=== PATIENT | male | born 1955 | race Caucasian/White ===

== ENCOUNTER 2016-12-31 05:47 | Emergency (ER) | payer OTHER ==
[2016-12-31] MEDS ORDERED: DEXAMETHASONE 10 MG/ML VIAL PO STA (06:44)
[2016-12-31] MEDS ORDERED: AZITHROMYCIN 250 MG TABLET PO STA (06:44)
[2016-12-31] MEDS ORDERED: IBUPROFEN 600 MG TABLET PO STA (06:44)
[2016-12-31] MEDS ORDERED: AZITHROMYCIN 250 MG TABLET PO ONE (06:49)
[2016-12-31] MEDS ORDERED: DEXAMETHASONE 10 MG/ML VIAL ONE (06:50)
[2016-12-31] MEDS ORDERED: IBUPROFEN 600 MG TABLET PO ONE (06:50)
== END 2016-12-31 07:13 | disposition home or self-care (01) ==
DX: H66.91 Otitis media, unspecified, right ear (principal); J44.9 Chronic obstructive pulmonary disease, unspecified; F17.200 Nicotine dependence, unspecified, uncomplicated
CPT/HCPCS: 99283; A9270

== ENCOUNTER 2017-08-09 09:26 | Day surgery (SDC) | payer OTHER ==
[2017-08-09] MEDS ORDERED: ceFAZolin 2 GM/50 ML 0 GM/0 ML BAG IV ONE (09:35)
[2017-08-09] MEDS ORDERED: CLINDAMYCIN IV 900 MG/50 ML IV ONE (10:00)
[2017-08-09] MEDS ORDERED: LACTATED RINGERS 1,000 ML IV ONE (10:05)
[2017-08-09] MEDS ORDERED: BUPIVACAINE 0.5% PF 30 ML VIAL INFIL ONE (11:53)
[2017-08-09] MEDS ORDERED: MIDAZOLAM 2 MG/2 ML VIAL IVP ONE (12:00)
[2017-08-09] MEDS ORDERED: fentaNYL 100 MCG/2 ML VIAL IVP ONE (12:00)
[2017-08-09] MEDS ORDERED: LIDOCAINE-MPF 2% 5 ML VIAL IM ONE (12:00)
--- NOTE | 2017-08-09 12:42 | OPERATIVE REPORT ---
Operative Report - General Procedure Date: 08/09/17 Planned Procedure: Wide excision of previous basal cell carcinoma of the LEFT neck Pre-Op Diagnosis: Basal cell carcinoma of the LEFT neck Procedure Performed: Wide excision of previous basal cell carcinoma of the LEFT neck Post Op Diagnosis: Basal cell carcinoma of the LEFT neck - Procedure Note Primary Surgeon: Yossi Puente MD Anesthesia Provider: Herlinda Michele Anesthesia Technique: Local (30 mL 1/2% Marcaine), MAC IV Fluids (mL): 700 Estimated Blood Loss (mL): 5 Complications: None. - Other Other Information/Narrative: OPERATIVE DESCRIPTION/REPORT: After verbal and written informed consent was obtained detailing the risks of infection, bleeding requiring transfusion with its risks, nerve injury, and , and after I met with the patient confirming the surgery and the site of the surgery and after initialing the site of the surgery with a surgical marker , the patient was brought to the operative suite and placed supine on the operating table. Great care was taken to avoid pressure points to prevent pressure necrosis or nerve injury. Monitoring devices were applied along with TEDs and pneumatic compressive stockings (to prevent DVT). The patient received preoperative antibiotics for surgical prophylaxis. [anesthesiologist] sedated and anesthetized the patient for the entire procedure. The patient was prepped and draped in the usual sterile manner. With the patient draped my initials were clearly visible. A "time in" then confirmed that the patient was identified with 3 identifiers (name, date and medical record number), the history and physical was in the chart, the signed consent confirming the procedure was in the chart, the patient was in the correct position, the aforementioned prophylactic measures were in place or given, we had the correct personnel and equipment to complete the procedure and that anesthesia, surgery and nursing were given an opportunity to express any concerns. With the agreement of everyone in the room, we proceeded with the operation. After adequate local anesthesia was administered using 1/2% marcaine, a curvilinear incision was made encompassing the previous excision site. Dissection of the skin circumferentially was completed primarily using Bovie electrocautery. The lesion was then dissected off the neck using Bovie electrocautery. Every attempt was made to get to normal tissue around the lesion. The specimen was sent to pathology with a short stitch superiorly (neck ) and a long stitch posteriorly (back). Meticulous hemostasis was obtained using Bovie electrocautery. The subcutaneous tissues were approximated using interrupted 2-0 Vicryl. The skin incision was approximated with 4-0 Nylon using mattress sutures. The skin was re-injected with 1/2% marcaine for postoperative pain control. Bacitracin and a dressing was then applied. At this point a time out was performed that confirmed that all the counts were correct, the procedure that was performed, the blood loss, the IV fluids administered, and the patients condition. Having tolerated the procedure well , the patient was subsequently taken to recovery room in good and stable condition.
[2017-08-09 13:16] VITALS: BP 137/79
== END 2017-08-09 09:27 | disposition home or self-care (01) ==
LOC: SDS 09:26
PROVIDERS: ATTEND Surgery
PROC: 0HB4XZZ Excision of Neck Skin, External Approach (ICD-10-PCS; principal; 2017-08-09 10:30)
DX: C44.41 Basal cell carcinoma of skin of scalp and neck (principal); M06.9 Rheumatoid arthritis, unspecified; J45.909 Unspecified asthma, uncomplicated; F17.210 Nicotine dependence, cigarettes, uncomplicated
CPT/HCPCS: 11626; J7120

== ENCOUNTER 2018-11-20 08:00 | Outpatient (CLI) | payer MEDICARE, OTHER ==
[2018-11-20 13:13] LABS: BASOPHILS # (AUTO) 0.1 10^3/uL (0.0-0.1); BASOPHILS % (AUTO) 1.1 %; EOSINOPHILS # (AUTO) 0.2 10^3/uL (0.0-0.7); EOSINOPHILS % (AUTO) 1.9 %; HGB - HEMOGLOBIN 15.8 g/dL (14.0-18.0); LYMPHOCYTES # (AUTO) 3.4 10^3/uL (1.5-3.5); LYMPHOCYTES % (AUTO) 27.6 %; MEAN CORPUSCULAR HEMOGLOBIN 29.4 pg (27.0-31.0); MEAN CORPUSCULAR HGB CONC 33.9 g/dL (32.0-36.0); MEAN CORPUSCULAR VOLUME 86.7 fL (80.0-94.0); MEAN PLATELET VOLUME 9.5 fL (7.4-11.4); MONOCYTES # (AUTO) 0.9 10^3/uL (0.0-1.0); MONOCYTES % (AUTO) 7.2 %; NEUTROPHILS # (AUTO) 7.6 10^3/uL (1.5-6.6); NEUTROPHILS % (AUTO) 62.2 %; PLT - PLATELET COUNT 225 10^3/uL (130-450); RED BLOOD COUNT 5.36 10^6/uL (4.70-6.10); RED CELL DISTRIBUTION WIDTH 13.6 % (12.0-15.0); WHITE BLOOD COUNT 12.3 x10^3/uL (4.8-10.8)
[2018-11-20 13:27] LABS: ALBUMIN 3.9 g/dL (3.2-5.5); ALKALINE PHOSPHATASE 84 IU/L (42-121); ALT ALANINE AMINOTRANSFERASE 41 IU/L (10-60); AST ASPARTATE AMINOTRANSFERASE 26 IU/L (10-42); BILIRUBIN,TOTAL 0.9 mg/dL (0.2-1.0); BUN - BLOOD UREA NITROGEN 13 mg/dL (6-20); CALCIUM 8.7 mg/dL (8.5-10.3); CARBON DIOXIDE - CO2 28 mmol/L (21-32); CHLORIDE 94 mmol/L (101-111); CHOL/HDL RATIO 4.9 (<5.0); CHOLESTEROL 172 mg/dL; CREATININE 0.8 mg/dL (0.6-1.2); GFR - MDRD 97 (>89); GLUCOSE 144 mg/dL (70-100); HDL CHOLESTEROL 35 mg/dL; LDL CHOLESTEROL,CALCULATED 110 mg/dL; LDL/HDL RATIO 3.1 (<3.6); SODIUM 132 mmol/L (135-145); TOTAL PROTEIN 7.7 g/dL (6.7-8.2); VLDL CHOLESTEROL 27 mg/dL
[2018-11-21 11:38] LABS: HB2 TOTAL 17.3 g/dL; HEMOGLOBIN A1C 1.17 g/dL; HEMOGLOBIN A1C % 8.3 % (4.6-6.2)
[2018-11-21 12:11] LABS: HEPATITIS C ANTIBODY NON-REACTIVE (NON-REACTIVE)
== END 2018-11-20 23:59 ==
LOC: LAB.R 08:00
PROVIDERS: ATTEND Internal Medicine
DX: J44.9 Chronic obstructive pulmonary disease, unspecified (principal); I45.10 Unspecified right bundle-branch block; M17.9 Osteoarthritis of knee, unspecified; Z13.6 Encounter for screening for cardiovascular disorders; Z12.5 Encounter for screening for malignant neoplasm of prostate
CPT/HCPCS: 80053; 80061; 85025; 86803; G0103; 83036; 83721; 84153

== ENCOUNTER 2019-01-03 23:45 | Emergency (ER) | payer MEDICARE, OTHER ==
[2019-01-03] MEDS ORDERED: TETANUS/DIPHTHERIA/PERTUSSIS 0.5 ML SYRINGE IM ONE (23:58)
--- NOTE | 2019-01-04 00:06 | ED Physician Documentation ---
History of Present Illness - Stated complaint Stated Complaint: R INDEX FINGER LAC - Chief complaint Chief Complaint: Laceration - History obtained from History obtained from: Patient - History of Present Illness Timing: Today Pain level max: 0 Pain level now: 0 - Additonal information Additional information: R index finger laceration on can today. states he is right handed. unknown last tetanus. Nothing makes it better or worse Review of Systems Neurologic: denies: Focal weakness, Numbness PD PAST MEDICAL HISTORY - Past Medical History Cardiovascular: None Respiratory: Asthma, Sleep apnea, Other Endocrine/Autoimmune: Type 2 diabetes GI: Chronic constipation, Hemorrhoids : Nocturia, Frequency HEENT: None, Other Psych: None Musculoskeletal: Osteoarthritis, Rheumatoid arthritis Derm: None - Past Surgical History Past Surgical History: Yes Ortho: Arthroscopic surgery, Other - Present Medications Home Medications: Ambulatory Orders Medication Instructions Recorded Confirmed Metoprolol Succinate [Toprol Xl] 25 mg PO BID 08/05/17 12/01/18 cloNIDine [Catapres] 0.1 mg PO BID 08/05/17 12/01/18 Nicotine 21 mg Patch [Nicoderm] 1 each TOP Q24H 08/09/17 12/01/18 Albuterol Sulfate [Proair Hfa 1 - 2 puffs INH Q4H PRN 12/01/18 12/01/18 Inhaler] Aspirin 81 mg PO DAILY 12/01/18 12/01/18 Docusate Sodium 250Mg Capsule 250 mg PO TID 12/01/18 12/01/18 [Colace 250Mg Capsule] - Allergies Allergies/Adverse Reactions: Allergies Allergy/AdvReac Type Severity Reaction Status Date / Time Penicillins Allergy Unknown Unknown Verified 01/03/19 23:52 - Social History Does the pt smoke?: Yes Smoking Status: Current every day smoker Does the pt drink ETOH?: Yes Does the pt have substance abuse?: No PD ED PE NORMAL - Vitals Vital signs reviewed: Yes - General General: Alert and oriented X 3, No acute distress - Derm Derm: Warm and dry - Extremities Extremities: Other (r index finger - 1cm, linear over PIP joint, dorsum. NVI. no tendon injury) - Neuro Neuro: Alert and oriented X 3 Results - Vitals Vitals: Vital Signs - 24 hr 01/03/19 01/04/19 23:50 01:02 Temperature 37.1 C 36.2 C L Heart Rate 92 84 Respiratory 16 18 Rate Blood Pressure 177/72 H 148/78 H O2 Saturation 96 94 Oxygen O2 Source Room air Procedures - Laceration (location) R 2nd digit Length in cm: 1 Wound type: Linear, Into subcut fat, Clean Neurovascular status: Sensory intact, Motor intact, Vascular intact Tendon involvement: Tendon intact. No: Tendon Injury Anesthesia: Lidocaine 1% Wound Preparation: Irrigated copiously NS, Wound explored, To the base. No: FB identified Skin layer closure: Nylon, Interrupted, Size #-0 - enter number (4) Other: Patient tolerated well, No complications, Neurovascular intact, Dressing applied, Tetanus booster given (tdap) Complexity: Simple PD MEDICAL DECISION MAKING - ED course Complexity details: considered differential, d/w patient ED course: Warnings of infection and instructions on wound care given at bedside. Also counseled on how to minimize scarring. Patient counseled regarding signs and symptoms for which I believe and urgent re-evaluation would be necessary. Patient with good understanding of and agreement to plan and is comfortable going home at this time This document was made in part using voice recognition software. While efforts are made to proofread this document, sound alike and grammatical errors may occur. Departure - Departure Disposition: 01 Home, Self Care Clinical Impression: Laceration of right index finger Qualifiers: Encounter type: initial encounter Damage to nail status: without damage Foreign body presence: without foreign body Qualified Code(s): S61.210A - Laceration without foreign body of right index finger without damage to nail, initial encounter Condition: Good Instructions: ED Laceration Hand Follow-Up: Simone Rider MD [Primary Care Provider] - Comments: Follow-up with your doctor in approximately 10 days for suture removal. Return if you worsen. Return especially for redness, swelling or drainage from the wound. You can apply antibiotic ointment twice daily to the wound. Discharge Date/Time: 01/04/19 01:10
[2019-01-04] MEDS ORDERED: LIDOCAINE 1% 2 ML VIAL SUBQ STA (00:38)
[2019-01-04 01:03] VITALS: BP 148/78
== END 2019-01-04 01:10 | disposition home or self-care (01) ==
LOC: ED 23:45
DX: S61.210A Laceration without foreign body of right index finger without damage to nail, initial encounter (principal); W26.8XXA Contact with other sharp object(s), not elsewhere classified, initial encounter; E11.9 Type 2 diabetes mellitus without complications; F17.200 Nicotine dependence, unspecified, uncomplicated; Z79.82 Long term (current) use of aspirin; Z23 Encounter for immunization
CPT/HCPCS: 12001; 90471; 99282; 99283

== ENCOUNTER 2019-01-22 06:18 | Day surgery (SDC) | payer MEDICARE, OTHER ==
[2019-01-22] MEDS ORDERED: LACTATED RINGERS 1,000 ML IV ONE (06:40)
[2019-01-22] MEDS ORDERED: fentaNYL 250 MCG/5 ML VIAL IVP ONE (07:25)
[2019-01-22] MEDS ORDERED: MIDAZOLAM 2 MG/2 ML VIAL IVP ONE (07:25)
[2019-01-22 08:18] VITALS: BP 122/80
== END 2019-01-22 06:19 | disposition home or self-care (01) ==
LOC: SDS 06:18
PROVIDERS: ATTEND Surgery
PROC: 0DBP8ZZ Excision of Rectum, Via Natural or Artificial Opening Endoscopic (ICD-10-PCS; principal; 2019-01-22 07:30)
DX: D12.8 Benign neoplasm of rectum (principal); K57.30 Diverticulosis of large intestine without perforation or abscess without bleeding; K64.8 Other hemorrhoids; I10 Essential (primary) hypertension; J45.909 Unspecified asthma, uncomplicated; E11.9 Type 2 diabetes mellitus without complications; G47.30 Sleep apnea, unspecified; F17.210 Nicotine dependence, cigarettes, uncomplicated; M06.9 Rheumatoid arthritis, unspecified; E66.9 Obesity, unspecified; Z68.41 Body mass index [BMI] 40.0-44.9, adult; Z79.82 Long term (current) use of aspirin; Z79.51 Long term (current) use of inhaled steroids
CPT/HCPCS: 45380; J3010; J7120

== ENCOUNTER 2019-06-07 09:49 | Outpatient (CLI) | payer MEDICARE, OTHER ==
[2019-06-07 10:03] LABS: BASOPHILS # (AUTO) 0.1 10^3/uL (0.0-0.1); BASOPHILS % (AUTO) 0.9 %; EOSINOPHILS # (AUTO) 0.3 10^3/uL (0.0-0.7); EOSINOPHILS % (AUTO) 2.5 %; HGB - HEMOGLOBIN 16.1 g/dL (14.0-18.0); LYMPHOCYTES # (AUTO) 3.4 10^3/uL (1.5-3.5); LYMPHOCYTES % (AUTO) 30.9 %; MEAN CORPUSCULAR HEMOGLOBIN 29.1 pg (27.0-31.0); MEAN CORPUSCULAR HGB CONC 32.7 g/dL (32.0-36.0); MEAN CORPUSCULAR VOLUME 88.8 fL (80.0-94.0); MONOCYTES % (AUTO) 8.8 %; NEUTROPHILS # (AUTO) 6.3 10^3/uL (1.5-6.6); NEUTROPHILS % (AUTO) 56.5 %; PLT - PLATELET COUNT 238 10^3/uL (130-450); RED BLOOD COUNT 5.54 10^6/uL (4.70-6.10); RED CELL DISTRIBUTION WIDTH 13.5 % (12.0-15.0); WHITE BLOOD COUNT 11.1 x10^3/uL (4.8-10.8)
[2019-06-07 10:10] LABS: CALCIUM 9.6 mg/dL (8.5-10.3); CREATININE 0.9 mg/dL (0.6-1.2)
[2019-06-07 10:20] LABS: HB2 TOTAL 16.8 g/dL; HEMOGLOBIN A1C 0.87 g/dL; HEMOGLOBIN A1C % 6.9 % (4.6-6.2)
[2019-06-07 10:42] LABS: THYROID STIMULATING HORMONE 1.48 uIU/mL (0.34-5.60)
[2019-06-07 10:44] LABS: FREE T4 (FREE THYROXINE) 0.71 ng/dL (0.58-1.64)
== END 2019-06-07 09:50 | disposition home or self-care (01) ==
LOC: LAB 09:49
PROVIDERS: ATTEND Family Medicine
DX: E11.8 Type 2 diabetes mellitus with unspecified complications (principal); M62.81 Muscle weakness (generalized)
CPT/HCPCS: 36415; 80048; 83036; 84439; 84443; 84481; 85025

== ENCOUNTER 2019-06-30 03:26 | Emergency (ER) | payer MEDICARE, OTHER ==
[2019-06-30 03:38] VITALS: BP 156/60
[2019-06-30] MEDS ORDERED: LIDOCAINE 2% 10 ML MDV SUBQ STA (03:52)
--- NOTE | 2019-06-30 04:14 | ED Physician Documentation ---
History of Present Illness - Stated complaint Stated Complaint: MALE PX - Chief complaint Chief Complaint: General - History obtained from History obtained from: Patient - History of Present Illness Timing: Last night Pain level max: 8 Pain level now: 8 - Additonal information Additional information: Patient was constipated and having a bowel movement when he strained, felt a pop and now has swelling to the perineum. Worse with sitting. Better with standing. Review of Systems Constitutional: denies: Fever, Chills GI: denies: Vomiting Skin: denies: Rash Musculoskeletal: denies: Neck pain, Back pain PD PAST MEDICAL HISTORY - Past Medical History Past Medical History: Yes Cardiovascular: None Respiratory: Asthma, Sleep apnea, Other Neuro: None Endocrine/Autoimmune: Type 2 diabetes GI: Chronic constipation, Hemorrhoids : Nocturia, Frequency HEENT: Other Psych: None Musculoskeletal: Osteoarthritis, Rheumatoid arthritis Derm: None - Past Surgical History Past Surgical History: Yes Ortho: Arthroscopic surgery, Other - Present Medications Home Medications: Ambulatory Orders Medication Instructions Recorded Confirmed Metoprolol Succinate [Toprol Xl] 25 mg PO BID 08/05/17 12/01/18 cloNIDine [Catapres] 0.1 mg PO BID 08/05/17 12/01/18 Nicotine 21 mg Patch [Nicoderm] 1 each TOP Q24H 08/09/17 12/01/18 Albuterol Sulfate [Proair Hfa 1 - 2 puffs INH Q4H PRN 12/01/18 12/01/18 Inhaler] Aspirin 81 mg PO DAILY 12/01/18 12/01/18 Docusate Sodium 250Mg Capsule 250 mg PO TID 12/01/18 12/01/18 [Colace 250Mg Capsule] - Allergies Allergies/Adverse Reactions: Allergies Allergy/AdvReac Type Severity Reaction Status Date / Time Penicillins Allergy Unknown Unknown Verified 06/30/19 03:38 - Social History Does the pt smoke?: Yes Smoking Status: Current every day smoker Does the pt drink ETOH?: Yes Does the pt have substance abuse?: No - Immunizations Immunizations are current?: No - POLST Patient has POLST: No PD ED PE NORMAL - Vitals Vital signs reviewed: Yes - General General: Alert and oriented X 3, No acute distress - HEENT HEENT: Moist mucous membranes - Derm Derm: Warm and dry - Neuro Neuro: Alert and oriented X 3 PD ED PE EXPANDED - Male Male visual: 1 - swelling, tenderness Results - Vitals Vitals: Vital Signs - 24 hr 06/30/19 06/30/19 03:36 04:29 Temperature 36.7 C Heart Rate 89 78 Respiratory 17 17 Rate Blood Pressure 156/60 H O2 Saturation 96 96 Oxygen O2 Source Room air PD MEDICAL DECISION MAKING - ED course Complexity details: considered differential, d/w patient ED course: 63-year-old male with what appears to be a perineal hematoma. Ultrasound was used to confirm. No blood flow present. The area was prepped with chlorhexidine. 2% lidocaine was infiltrated for anesthesia with good effect. An 18-gauge needle was then inserted and 20 cc of blood returned. The swelling decreased significantly and pain improved. Patient tolerated well Hematoma was drained. Tolerated well. Patient sat directly on the area with several layers of gauze to decrease the swelling. We will also use ice at home. Will return if he worsens. Not on blood thinners. Patient counseled regarding signs and symptoms for which I believe and urgent re-evaluation would be necessary. Patient with good understanding of and agreement to plan and is comfortable going home at this time This document was made in part using voice recognition software. While efforts are made to proofread this document, sound alike and grammatical errors may occur. Departure - Departure Disposition: 01 Home, Self Care Clinical Impression: Hematoma Condition: Good Instructions: ED Hematoma Follow-Up: Simone Rider MD [Primary Care Provider] - Within 3 Days Comments: your,doctor in 3 days for wound check. Return if you worsen. Discharge Date/Time: 06/30/19 04:30
== END 2019-06-30 04:30 | disposition home or self-care (01) ==
LOC: ED 03:26
DX: S30.0XXA Contusion of lower back and pelvis, initial encounter (principal); X58.XXXA Exposure to other specified factors, initial encounter; E11.9 Type 2 diabetes mellitus without complications; F17.200 Nicotine dependence, unspecified, uncomplicated; Z79.82 Long term (current) use of aspirin
CPT/HCPCS: 10160; 99281; 99282

== ENCOUNTER 2020-01-25 08:07 | Outpatient (CLI) | payer MEDICARE, OTHER ==
[2020-01-25 08:41] LABS: HB2 TOTAL 17.8 g/dL; HEMOGLOBIN A1C 2.12 g/dL
[2020-01-25 08:42] LABS: BASOPHILS % (AUTO) 0.6 %; EOSINOPHILS % (AUTO) 1.2 %; HGB - HEMOGLOBIN 17.1 g/dL (14.0-18.0); LYMPHOCYTES % (AUTO) 36.2 %; MEAN CORPUSCULAR HEMOGLOBIN 30.5 pg (27.0-31.0); MEAN CORPUSCULAR HGB CONC 35.3 g/dL (32.0-36.0); MEAN CORPUSCULAR VOLUME 86.6 fL (80.0-94.0); MEAN PLATELET VOLUME 11.4 fL (7.4-11.4); MONOCYTES % (AUTO) 7.4 %; NEUTROPHILS % (AUTO) 53.8 %; PLT - PLATELET COUNT 185 10^3/uL (130-450); RED CELL DISTRIBUTION WIDTH 12.3 % (12.0-15.0); WHITE BLOOD COUNT 9.1 x10^3/uL (4.8-10.8)
[2020-01-25 08:45] LABS: ALBUMIN 4.2 g/dL (3.2-5.5); ALBUMIN/GLOBULIN RATIO 1.2 (1.0-2.2); ALKALINE PHOSPHATASE 99 IU/L (42-121); ALT ALANINE AMINOTRANSFERASE 49 IU/L (10-60); AST ASPARTATE AMINOTRANSFERASE 30 IU/L (10-42); BUN - BLOOD UREA NITROGEN 17 mg/dL (6-20); CALCIUM 8.8 mg/dL (8.5-10.3); CARBON DIOXIDE - CO2 23 mmol/L (21-32); CHLORIDE 97 mmol/L (101-111); CHOL/HDL RATIO 6.1 (<5.0); CHOLESTEROL 200 mg/dL; CREATININE 0.9 mg/dL (0.6-1.2); GLUCOSE 415 mg/dL (70-100); HDL CHOLESTEROL 33 mg/dL; SODIUM 129 mmol/L (135-145); TOTAL PROTEIN 7.7 g/dL (6.7-8.2)
[2020-01-25 08:59] LABS: ABNORMAL LYMPHS % (MANUAL) 0 %; BAND NEUTROPHILS % (MANUAL) 0 %
[2020-01-25 09:02] LABS: LYMPHOCYTES # (MANUAL) 3.5 10^3/uL (1.5-3.5); LYMPHOCYTES % (MANUAL) 17 %; MONOCYTES # (MANUAL) 0.1 10^3/uL (0.0-1.0); MYELOCYTES % (MANUAL) 2 %
[2020-01-25 09:03] LABS: DIFFERENTIAL COMMENT MANUAL DIFFERENTIAL; PLATELET MORPHOLOGY RARE GIANT PLATELETS (NORMAL); RBC MORPHOLOGY (MULTIPLE) 1+ ANISOCYTOSIS (NORMAL)
[2020-01-25 09:17] LABS: LDL CHOLESTEROL,DIRECT 111 mg/dL; LDLD/HDL RATIO 3.4 (<3.6)
== END 2020-01-25 08:08 | disposition home or self-care (01) ==
LOC: LAB 08:07
PROVIDERS: ATTEND Family Medicine
DX: E11.65 Type 2 diabetes mellitus with hyperglycemia (principal); E66.3 Overweight; M05.9 Rheumatoid arthritis with rheumatoid factor, unspecified; J45.909 Unspecified asthma, uncomplicated; I10 Essential (primary) hypertension
CPT/HCPCS: 36415; 80053; 80061; 83036; 83721; 84443; 85025

== ENCOUNTER 2020-04-08 15:24 | Outpatient (CLI) | payer MEDICARE, OTHER ==
--- NOTE | 2020-04-08 15:42 | SLEEP CARE CONSULTATION ---
Information from patient questionnaire entered by Lianna Noe. I have reviewed and concur with the information entered by Lianna Noe. This document represents the service I personally performed and the decisions made by me, Radha Hansen MD, [facility]. History of Present Illness Service Date and Time: 04/08/2020 1524 Reason for Visit: New patient, -[facility] Chief Complaint: reports: Other (previously diagnosed sleep apnea) Duration of Symptoms: 8 year Usual bedtime: varies Time it takes to fall asleep: 15 minutes Snores at night: Yes Observed to quit breathing while asleep: Yes Sleeps alone due to snoring: No Number of times waking at night: varies Reasons for waking at night: reports: Bathroom, Other (change position) Toss, Turn, or Twitch while sleeping: Yes Recalls having dreams: Yes Usually gets out of bed at: varies Feels refreshed in the morning: Yes Morning headache: No Sleepy or fatigued during the day: Yes Ever fallen asleep while driving: No Takes day naps: Yes Dreams during day naps: Yes Prior sleep studies: Yes Year and Where: [facility] 2013 Additional HPI information: I had the pleasure of seeing Mr. Frederick today regarding obstructive sleep apnea-hypopnea. As you know, he is a 64 year old gentleman who was diagnosed with the sleep-disordered breathing here in 2013. The AHI was 60.2 and radha oxygen saturation of 73%. He was prescribed a BiPAP device set at 20/14 cmH2O. He uses every night and all night. The compliance data is not available because he forgot to bring the memory card. He wears nasal pillows. He finds the treatment very beneficial. Subjective Initial [place] Sleepiness Scale score: 9 Past Medical History Past Medical History: reports: Diabetes, Arthritis, Asthma, Other (COPD, High Blood Pressure) Social History The patient's occupation is Retired. Patient is and lives in [place]. Have you smoked in the past 12 months: Yes Cigarettes per day (20/pack): 20 Years of smokin Smoking Pack Years: 45.0 Caffeine use: Yes Caffeine amount and frequency: 1-2 cans/day Family History Family history of sleep disordered breathing: No Allergies and Home Medications Drug allergies reviewed: Yes Home medication list reviewed: Yes Review of Systems Weight gain over past 5 years: 50 Weight loss over past 5 years: 20 Cardiovascular: reports: high blood pressure Respiratory: reports: shortness of breath, wheeze Gastrointestinal: reports: difficulty swallowing Urinary: denies: incontinence, frequency, urgency, impotence, other Neurological: denies: headaches, seizure, head trauma, disorientation, speech dysfunction, gait or balance problems, fainting or unconsciousness, other Ear/Nose/Throat: reports: nasal congestion, wisdom teeth removed Endocrine: reports: too hot or cold, unexplained weakness Musculoskeletal: reports: joint pain, mobility problems Immunologic: denies: sneezing, rash, itching, allergies to food or environment, other Physical Exam Vital signs obtained and entered by: To minimize the COVID-19 exposure, detailed exam was not performed. Height: 5 ft 11 in Weight: 300 lb Weight change since last visit: 80 Body Mass Index: 41.8 BMI Classification: Morbidly Obese Impression and Plan IMPRESSION: 1. Obstructive Sleep Apnea-Hypopnea Syndrome, very severe, as previously diagnosed. According to the patient, h has had good treatment compliance. The patient experiences improvement on the treatment. Narrow oropharynx and obesity are common predisposing factors for obstructive sleep apnea-hypopnea syndrome. A new in-laboratory polysomnography will be ordered to confirm the diagnosis and reassess its severity which is most likely worse due to the 80-lb weight gain. Plan: 1. Schedule an in-laboratory polysomnography. 2. The patient will bring his memory card in for download. 3. Avoid alcohol, sedative and muscle relaxant around bedtime. 4. Attempt to lose weight. 5. Return for a follow up after the sleep study. Visit Type: In Office Time Spent with Patient (minutes): 15 Provider Statement: I spent 100% of the Face to Face Visit with the patient with greater than 50% spent counseling the patient and coordination of care.
== END 2020-04-08 15:25 | disposition home or self-care (01) ==
LOC: SC 15:24
PROVIDERS: ATTEND Internal Medicine Pulmonary Disease
DX: G47.33 Obstructive sleep apnea (adult) (pediatric) (principal); E66.01 Morbid (severe) obesity due to excess calories; Z68.41 Body mass index [BMI] 40.0-44.9, adult; F17.210 Nicotine dependence, cigarettes, uncomplicated
CPT/HCPCS: 99203; G0463; 99212

== ENCOUNTER 2020-04-24 19:21 | Outpatient (CLI) | payer MEDICARE, OTHER | END 2020-04-24 19:22 | disposition home or self-care (01) | LOC: SC 19:21 | PROVIDERS: ATTEND Internal Medicine Pulmonary Disease | DX: G47.33 Obstructive sleep apnea (adult) (pediatric) (principal); G47.61 Periodic limb movement disorder | CPT/HCPCS: 95810 ==

== ENCOUNTER 2020-05-08 09:18 | Outpatient (CLI) | payer MEDICARE, OTHER ==
[2020-05-08 09:42] LABS: CALCIUM 9.4 mg/dL (8.5-10.3); CREATININE 0.8 mg/dL (0.6-1.2)
[2020-05-08 10:12] LABS: HB2 TOTAL 18.1 g/dL; HEMOGLOBIN A1C 1.93 g/dL; HEMOGLOBIN A1C % 11.9 % (4.6-6.2)
== END 2020-05-08 09:19 | disposition home or self-care (01) ==
LOC: LAB 09:18
PROVIDERS: ATTEND Family Medicine
DX: E11.9 Type 2 diabetes mellitus without complications (principal); E66.01 Morbid (severe) obesity due to excess calories
CPT/HCPCS: 36415; 80048; 83036

== ENCOUNTER 2020-06-25 07:47 | Outpatient (CLI) | payer MEDICARE, OTHER ==
--- NOTE | 2020-06-25 08:16 | SLEEP CARE CONSULTATION ---
Information from patient questionnaire entered by Lianna Noe. I have reviewed and concur with the information entered by Lianna Noe. This document represents the service I personally performed and the decisions made by me, Mallory Broderick ARNP. History of Present Illness Service Date and Time: 06/25/2020 0747 Previous diagnosis: Very Severe, Obstructive Sleep Apnea-Hypopnea Syndrome AHI: 60.5 Reason for follow up: first compliance after device update Equipment type: BiPAP Equipment obtained from: [employer] (getting supplies as needed) Mask style: Nasal pillows Backup mask available: Yes (old mask) Last cushion change: 1 month Prior sleep studies: Yes Year and Where: [facility] Type of Sleep Study: Polysomnography HPI additional information: KEYONNA GUERRERO was diagnosed to have very severe, AHI 60.5, obstructive sleep apnea-hypopnea syndrome and returned today for BIPAP therapy first compliance follow-up. Sleep Study - Results Prior sleep studies: Yes Year and Where: [facility] 2013 CPAP Compliance Data - Data Reviewed with Patient Average duration of nightly device use: 8 hours 15 minutes Compliance rate %: 100 Current pressure setting (cmH2O): 20/14 Humidity settin Heated hose settin Average residual AHI: 0.4 Average large leak: 39 minutes 52 seconds Subjective Patient concerns: denies: aerophagia, mask discomfort, air blowing in eyes, mask leak noise, condensation in mask/hose, nasal congestion, dry mouth, nose, throat, epistaxis, other Observed to snore while using device: No Current pressure setting perceived as: comfortable On therapy, patient: reports: sleeping better, awakening more refreshed, being more awake and alert during the day, more rested overall. denies: drowsiness while driving Initial [place] Sleepiness Scale score: 11 (in 2014) Current [place] Sleepiness Scale score: 6 Allergies and Home Medications Drug allergies reviewed: Yes (penicillin) Home medication list reviewed: Yes (no changes) Review of Systems Review of systems same as previous: No (metformin) Physical Exam Heart Rate: 79 O2 Saturation: 96 Height: 5 ft 11 in Weight: 300 lb Body Mass Index: 41.8 BMI Classification: Morbidly Obese Impression and Plan 1. Obstructive Sleep Apnea-Hypopnea Syndrome, very severe, with good treatment compliance and great apnea control. On CPAP therapy, the patient has better sleep quality and is more rested overall. Patient happy with new machine, thinks he is sleeping better with this machine than the last one. He has long history of BIPAP use and has not issues with use today. Patient's apnea severity and rationale for treatment to reduce apnea, improve sleep quality and reduce cardiovascular and cerebrovascular events was reviewed. I also reviewed the benefit of consistent device use of BIPAP for his hypertension. * Continue BIPAP pressure at 20/14 cmH2O * Notify me if snoring with mask or feeling that the pressure is too much or too little * Attempt to lose weight * Call this office if any problems using BIPAP * Return for follow up in , or sooner if concerns arise Visit Type: In Office Time Spent with Patient (minutes): 15 Provider Statement: I spent 100% of the Face to Face Visit with the patient with greater than 50% spent counseling the patient and coordination of care.
== END 2020-06-25 07:48 | disposition home or self-care (01) ==
LOC: SC 07:47
PROVIDERS: ATTEND Nurse Practitioner Family
DX: G47.33 Obstructive sleep apnea (adult) (pediatric) (principal); E66.01 Morbid (severe) obesity due to excess calories; Z68.41 Body mass index [BMI] 40.0-44.9, adult
CPT/HCPCS: 99213; G0463; 99212

== ENCOUNTER 2020-07-21 16:26 | Emergency (ER) | payer MEDICARE, OTHER ==
[2020-07-21 16:34] VITALS: BP 175/94
--- NOTE | 2020-07-21 16:37 | ED Physician Documentation ---
PD HPI HEENT - Stated complaint Stated Complaint: LT EAR PX - Chief complaint Chief Complaint: Heent - History obtained from History obtained from: Patient - History of Present Illness Timing - onset: How many days ago (few) Timing - duration: Days (few) Timing - details: Gradual onset, Still present Location: Left ear. No: Nose, Throat Associated symptoms: Congestion, Other (some ear drainage). No: Fever, Rhinorrhea Similar symptoms before: Has not had sx before Recently seen: Not recently seen Review of Systems Constitutional: denies: Fever, Chills Ears: reports: Ear pain, Drainage/discharge. denies: Tinnitus/ringing Nose: reports: Congestion. denies: Rhinorrhea / runny nose Throat: denies: Sore throat Respiratory: denies: Cough PD PAST MEDICAL HISTORY - Past Medical History Cardiovascular: None Respiratory: Asthma, Sleep apnea, Other Neuro: None Endocrine/Autoimmune: Type 2 diabetes GI: Chronic constipation, Hemorrhoids : Nocturia, Frequency HEENT: Other Psych: None Musculoskeletal: Osteoarthritis, Rheumatoid arthritis Derm: None - Past Surgical History Past Surgical History: Yes Ortho: Arthroscopic surgery, Other - Present Medications Home Medications: Ambulatory Orders Medication Instructions Recorded Confirmed Metoprolol Succinate [Toprol Xl] 25 mg PO BID 08/05/17 12/01/18 cloNIDine [Catapres] 0.1 mg PO BID 08/05/17 12/01/18 Nicotine 21 mg Patch [Nicoderm] 1 each TOP Q24H 08/09/17 12/01/18 Albuterol Sulfate [Proair Hfa 1 - 2 puffs INH Q4H PRN 12/01/18 12/01/18 Inhaler] Aspirin 81 mg PO DAILY 12/01/18 12/01/18 Docusate Sodium 250Mg Capsule 250 mg PO TID 12/01/18 12/01/18 [Colace 250Mg Capsule] Ciprofloxacin/Hydrocortisone 3 drops LEFTEAR QID 4 Days #1 07/21/20 [Cipro Hc Otic Suspension] bottle - Allergies Allergies/Adverse Reactions: Allergies Allergy/AdvReac Type Severity Reaction Status Date / Time Penicillins Allergy Unknown Unknown Verified 07/21/20 16:34 - Social History Does the pt smoke?: Yes Smoking Status: Current every day smoker Does the pt drink ETOH?: Yes Does the pt have substance abuse?: No - Immunizations Immunizations are current?: No - POLST Patient has POLST: No PD ED PE NORMAL - Vitals Vital signs reviewed: Yes - General General: Alert and oriented X 3, No acute distress, Well developed/nourished - HEENT HEENT: Moist mucous membranes, Pharynx benign. No: Ears normal (right is normal; left ear with canal redness and swelling. No redness of the pinna. There is exudate in the mid to outer part of the canal. TM appears normal. ) - Neck Neck: Supple, no meningeal sign, No adenopathy - Cardiac Cardiac: RRR, No murmur - Respiratory Respiratory: Clear bilaterally Results - Vitals Vitals: Vital Signs - 24 hr 07/21/20 16:30 Temperature 36.0 C L Heart Rate 102 H Respiratory 16 Rate Blood Pressure 175/94 H O2 Saturation 96 Oxygen O2 Source Room air PD MEDICAL DECISION MAKING - ED course Complexity details: considered differential, d/w patient Departure - Departure Disposition: 01 Home, Self Care Clinical Impression: Otitis externa Qualifiers: Otitis externa type: unspecified type Chronicity: acute Laterality: left Qualified Code(s): H60.502 - Unspecified acute noninfective otitis externa, left ear Condition: Stable Record reviewed to determine appropriate education?: Yes Instructions: ED Otitis Externa Follow-Up: Simone Rider MD [Primary Care Provider] - Prescriptions: Ciprofloxacin/Hydrocortisone [Cipro Hc Otic Suspension] 3 drops LEFTEAR QID 4 Days #1 bottle Comments: Use the drops 4 times daily for the next 4-5 days. Ibuprofen and/or Tylenol as needed for pains. Recheck if not improved over the next couple of days.
[2020-07-21] MEDS ORDERED: IBUPROFEN 600 MG TABLET PO STA (16:42)
[2020-07-21] MEDS ORDERED: ACETAMINOPHEN 325 MG TABLET PO STA (16:42)
[2020-07-21] MEDS ORDERED: SULFAMETH/TRIMETH DS 800/160 MG TABLET PO STA (16:42)
== END 2020-07-21 17:04 | disposition home or self-care (01) ==
LOC: ED 16:26
DX: H60.502 Unspecified acute noninfective otitis externa, left ear (principal); E11.9 Type 2 diabetes mellitus without complications; F17.200 Nicotine dependence, unspecified, uncomplicated
CPT/HCPCS: 99282; 99284; A9270

== ENCOUNTER 2021-06-11 09:04 | Outpatient (CLI) | payer MEDICARE, OTHER ==
[2021-06-11 09:32] VITALS: BP 142/74
--- NOTE | 2021-06-11 09:32 | SLEEP CARE CONSULTATION ---
Information from patient questionnaire entered by Herlinda Whiteside. I have reviewed and concur with the information entered by Herlinda Whiteside. This document represents the service I personally performed and the decisions made by , Mallory Broderick ARNP. History of Present Illness Service Date and Time: 06/11/2021 0904 Previous diagnosis: Very Severe, Obstructive Sleep Apnea-Hypopnea Syndrome AHI: 60.5 (in 2013) Reason for follow up: annual (last seen 06/2020) Equipment type: BiPAP Equipment obtained from: [employer] (getting supplies as needed) Mask style: Nasal pillows Backup mask available: Yes (old mask) Last cushion change: 1-2 months Prior sleep studies: Yes Year and Where: 2013 - [facility] Type of Sleep Study: Polysomnography HPI additional information: KEYONNA GUERRERO was diagnosed to have very severe, AHI 60.5, obstructive sleep apnea-hypopnea syndrome and returned today for BIPAP therapy annual follow-up. CPAP Compliance Data - Data Reviewed with Patient Average duration of nightly device use: 9 hr 14 min Compliance rate %: 99.4 (180 days) Current pressure setting (cmH2O): 20/14 Humidity settin Heated hose settin Average residual AHI: 0.6 Average large leak: 1 hr 1 min Subjective Patient concerns: denies: aerophagia, mask discomfort, air blowing in eyes, mask leak noise, condensation in mask/hose, nasal congestion, dry mouth, nose, throat, epistaxis, other Observed to snore while using device: No Current pressure setting perceived as: comfortable On therapy, patient: reports: sleeping better, awakening more refreshed, being more awake and alert during the day, more rested overall. denies: drowsiness while driving Initial [place] Sleepiness Scale score: 11 (in 2013) Current [place] Sleepiness Scale score: 7 Allergies and Home Medications Home medication list reviewed: Yes (Metformin 1000 mg BID) Review of Systems Review of systems same as previous: Yes (no changes) Physical Exam Blood Pressure: 142/74 Cuff size: wrist Heart Rate: 85 O2 Saturation: 97 Height: 5 ft 11 in Weight: 291 lb Body Mass Index: 40.6 BMI Classification: Morbidly Obese Impression and Plan 1. Obstructive Sleep Apnea-Hypopnea Syndrome, very severe, with excellent treatment compliance and excellent apnea control. On BIPAP therapy, the patient has better sleep quality and is more rested overall. Patient heard about the recall and has started using an older machine that he had as a backup. He will continue to use it and it is set at current pressures until his new unit is either replaced or repaired. Patient has already registered their device for the recall. Patient denies any black particles seen in machine or hoses, any unusual odors coming from device. Patient has not experienced any physical symptoms such as upper airway irritation, headache, skin or eye irritation, asthma, nausea/vomiting, difficulty breathing or chest pain. Patient informed that they may use an inline CPAP filter that they can obtain online to reduce chance of any particles being inhaled or ingested. We discussed thoroughly the health risks of not using the CPAP versus continuing use with the filter in place. If patient is not able to sleep due to waking up choking, gasping for air or other respiratory distress that they may decide to continue using it until it is either replaced or repaired. Patient has an older device that is not on the recall that he will switch to using in the meantime. Patient voiced understanding and agreement with plan. Patient was encouraged to lose weight for their overall health and to reduce apneas. Patient's apnea severity and rationale for treatment to reduce apnea, improve sleep quality and reduce cardiovascular and cerebrovascular events was reviewed. I also reviewed the benefit of consistent device use of BIPAP for hypertension. * Continue auto BIPAP pressure at 20/14 cmH2O * Notify me if snoring with mask or feeling that the pressure is too much or too little * Attempt to lose weight * Call this office if any problems using BIPAP * Return for follow up in 1 year, or sooner if concerns arise Counseling Topics: Spare mask, Weight loss health impact Visit Type: In Office Time Spent with Patient (minutes): 15 Provider Statement: I spent 100% of the Face to Face Visit with the patient with greater than 50% spent counseling the patient and coordination of care.
== END 2021-06-11 09:05 | disposition home or self-care (01) ==
LOC: SC 09:04
PROVIDERS: ATTEND Nurse Practitioner Family
DX: G47.33 Obstructive sleep apnea (adult) (pediatric) (principal); E66.01 Morbid (severe) obesity due to excess calories; Z68.41 Body mass index [BMI] 40.0-44.9, adult
CPT/HCPCS: 99212; G0463

== ENCOUNTER 2022-04-19 07:07 | Outpatient (CLI) | payer MEDICARE, OTHER ==
[2022-04-19 07:29] LABS: BASOPHILS # (AUTO) 0.1 10^3/uL (0.0-0.1); BASOPHILS % (AUTO) 0.8 %; EOSINOPHILS # (AUTO) 0.2 10^3/uL (0.0-0.7); EOSINOPHILS % (AUTO) 2.1 %; HGB - HEMOGLOBIN 16.6 g/dL (14.0-18.0); LYMPHOCYTES % (AUTO) 37.3 %; MEAN CORPUSCULAR HEMOGLOBIN 29.6 pg (27.0-31.0); MEAN CORPUSCULAR HGB CONC 33.9 g/dL (32.0-36.0); MEAN CORPUSCULAR VOLUME 87.3 fL (80.0-94.0); MONOCYTES # (AUTO) 0.8 10^3/uL (0.0-1.0); MONOCYTES % (AUTO) 7.2 %; NEUTROPHILS # (AUTO) 5.6 10^3/uL (1.5-6.6); PLT - PLATELET COUNT 231 10^3/uL (130-450); RED BLOOD COUNT 5.61 10^6/uL (4.70-6.10); RED CELL DISTRIBUTION WIDTH 12.9 % (12.0-15.0); WHITE BLOOD COUNT 10.7 x10^3/uL (4.8-10.8)
[2022-04-19 07:50] LABS: ALBUMIN 4.4 g/dL (3.2-5.5); ALBUMIN/GLOBULIN RATIO 1.2 (1.0-2.2); ALKALINE PHOSPHATASE 66 IU/L (42-121); ALT ALANINE AMINOTRANSFERASE 36 IU/L (10-60); AST ASPARTATE AMINOTRANSFERASE 20 IU/L (10-42); BILIRUBIN,TOTAL 0.8 mg/dL (0.2-1.0); BUN - BLOOD UREA NITROGEN 15 mg/dL (6-20); CALCIUM 9.6 mg/dL (8.5-10.3); CARBON DIOXIDE - CO2 30 mmol/L (21-32); CHLORIDE 96 mmol/L (101-111); CHOL/HDL RATIO 5.3 (<5.0); CHOLESTEROL 206 mg/dL; CREATININE 0.8 mg/dL (0.6-1.2); GFR - MDRD 96 (>89); GLUCOSE 211 mg/dL (70-100); HDL CHOLESTEROL 39 mg/dL; LDL CHOLESTEROL,CALCULATED 133 mg/dL; LDL/HDL RATIO 3.4 (<3.6); POTASSIUM 4.2 mmol/L (3.5-5.0); SODIUM 133 mmol/L (135-145); TOTAL PROTEIN 8.1 g/dL (6.7-8.2); TRIGLYCERIDES 169 mg/dL; VLDL CHOLESTEROL 34 mg/dL
[2022-04-19 08:00] LABS: THYROID STIMULATING HORMONE 1.57 uIU/mL (0.34-5.60)
[2022-04-19 08:09] LABS: CREATININE,URINE 158.5 mg/dL; MICROALBUM/CREATININE RATIO,UR 100.9 ug/mg (<30.0)
[2022-04-19 12:26] LABS: ESTIMATED AVERAGE GLUCOSE 235 mg/dL (70-100); HEMOGLOBIN A1c% 9.8 % (4.27-6.07)
== END 2022-04-19 07:08 | disposition home or self-care (01) ==
LOC: LAB 07:07
PROVIDERS: ATTEND Family Medicine
DX: E66.01 Morbid (severe) obesity due to excess calories (principal); E11.65 Type 2 diabetes mellitus with hyperglycemia; J44.9 Chronic obstructive pulmonary disease, unspecified; M17.0 Bilateral primary osteoarthritis of knee; G47.30 Sleep apnea, unspecified; G47.33 Obstructive sleep apnea (adult) (pediatric)
CPT/HCPCS: 36415; 80053; 80061; 82043; 82570; 83036; 83721; 84153; 84443; 85025

== ENCOUNTER 2022-07-14 07:28 | Outpatient (CLI) | payer MEDICARE, OTHER ==
[2022-07-14 07:48] LABS: CREATININE,URINE 241.6 mg/dL; MICROALBUM/CREATININE RATIO,UR 14.5 ug/mg (<30.0); MICROALBUMIN,URINE 3.5 mg/dL (0-300.0)
[2022-07-14 08:04] LABS: CALCIUM 9.3 mg/dL (8.5-10.3); CREATININE 0.9 mg/dL (0.6-1.2); POTASSIUM 3.8 mmol/L (3.5-5.0)
[2022-07-14 11:56] LABS: ESTIMATED AVERAGE GLUCOSE 166 mg/dL (70-100); HEMOGLOBIN A1c% 7.4 % (4.27-6.07)
== END 2022-07-14 07:29 | disposition home or self-care (01) ==
LOC: LAB 07:28
PROVIDERS: ATTEND Family Medicine
DX: I10 Essential (primary) hypertension (principal); E66.9 Obesity, unspecified; E11.8 Type 2 diabetes mellitus with unspecified complications
CPT/HCPCS: 36415; 80048; 82043; 82570; 83036

== ENCOUNTER 2022-07-14 19:51 | Emergency (ER) | payer MEDICARE, OTHER ==
[2022-07-14 20:05] VITALS: BP 165/78
[2022-07-14] MEDS ORDERED: SODIUM CHLORIDE 0.9% 1,000 ML IV STA (20:13)
--- NOTE | 2022-07-14 20:28 | ED Physician Documentation ---
History of Present Illness - Stated complaint Stated Complaint: DEHYDRATED/ MALE - Chief complaint Chief Complaint: Abd Pain - History obtained from History obtained from: Patient - History of Present Illness Timing: How many days ago (3) Pain level now: 0 Improved by: no ameliorating factors Worsened by: no exacerbating factors - Additonal information Additional information: c/o n/v/d. These symptoms started 3 days ago but the nausea/vomiting resolved within 24 hours and have not reoccurred. The diarrhea has continued, initially yellow discoloration. He took pepto-bismol and subsequently noted the stool turned black and this is his chief concern tonight. He has no h/o GI bleed nor reflux. Strongest blood-thinning medication he takes is ASA. Denies abdominal pain Review of Systems Constitutional: reports: Reviewed and negative Cardiac: reports: Reviewed and negative Respiratory: reports: Reviewed and negative GI: reports: Nausea (resolved), Vomiting (resolved), Diarrhea, Bloody / black stool. denies: Abdominal Pain, Abdominal Swelling, Constipation, Hematemesis : denies: Dysuria, Frequency Skin: denies: Rash PD PAST MEDICAL HISTORY - Past Medical History Cardiovascular: None Respiratory: Asthma, Sleep apnea, Other Neuro: None Endocrine/Autoimmune: Type 2 diabetes GI: Chronic constipation, Hemorrhoids : Nocturia, Frequency HEENT: Other Psych: None Musculoskeletal: Osteoarthritis, Rheumatoid arthritis Derm: None - Past Surgical History Past Surgical History: Yes Ortho: Arthroscopic surgery, Other - Present Medications Home Medications: Ambulatory Orders Medication Instructions Recorded Confirmed Metoprolol Succinate [Toprol Xl] 25 mg PO BID 08/05/17 12/01/18 cloNIDine [Catapres] 0.1 mg PO BID 08/05/17 12/01/18 Nicotine 21 mg Patch [Nicoderm] 1 each TOP Q24H 08/09/17 12/01/18 Albuterol Sulfate [Proair Hfa 1 - 2 puffs INH Q4H PRN 12/01/18 12/01/18 Inhaler] Aspirin 81 mg PO DAILY 12/01/18 12/01/18 Docusate Sodium 250Mg Capsule 250 mg PO TID 12/01/18 12/01/18 [Colace 250Mg Capsule] Ciprofloxacin/Hydrocortisone 3 drops LEFTEAR QID 4 Days #1 07/21/20 [Cipro Hc Otic Suspension] bottle - Allergies Allergies/Adverse Reactions: Allergies Allergy/AdvReac Type Severity Reaction Status Date / Time Penicillins Allergy Unknown Unknown Verified 07/14/22 20:05 - Social History Does the pt smoke?: Yes Smoking Status: Current every day smoker Does the pt drink ETOH?: Yes Does the pt have substance abuse?: No - Immunizations Immunizations are current?: No - POLST Patient has POLST: No PD ED PE NORMAL - Vitals Vital signs reviewed: Yes - General General: Alert and oriented X 3, No acute distress, Well developed/nourished - HEENT HEENT: Moist mucous membranes - Cardiac Cardiac: RRR, No murmur - Respiratory Respiratory: No respiratory distress, Clear bilaterally - Abdomen Abdomen: Normal bowel sounds, Soft, Non tender, Non distended - Derm Derm: Normal color, Warm and dry - Extremities Extremities: No edema PD ED PE EXPANDED - Rectal Rectal: Normal Tone, Other (no grossly visible stool on gloved finger so unable to assess if grossly visible blood or black discoloration) Results - Vitals Vitals: Vital Signs - 24 hr 07/14/22 07/14/22 19:59 22:09 Temperature 36.5 C Heart Rate 98 Respiratory 17 17 Rate Blood Pressure 165/78 H O2 Saturation 97 Oxygen O2 Source Room air - Labs Labs: Microbiology 07/14/22 21:20 Occult Blood - Final Stool Laboratory Tests 07/14/22 07/14/22 07/14/22 20:38 20:38 20:38 WBC 9.8 RBC 5.23 Hgb 15.2 Hct 45.8 MCV 87.6 MCH 29.1 MCHC 33.2 RDW 12.5 Plt Count 296 MPV 9.4 Neut # (Auto) 5.1 Lymph # (Auto) 3.[address] [place] # (Auto) 0.8 Eos # (Auto) 0.2 Baso # (Auto) 0.1 Absolute Nucleated RBC 0.00 Nucleated RBC % 0.0 PT 13.8 H INR 1.3 H Sodium Potassium Chloride Carbon Dioxide Anion Gap BUN Creatinine Estimated GFR (MDRD) Glucose Calcium Total Bilirubin AST ALT Alkaline Phosphatase Total Protein Albumin Globulin Albumin/Globulin Ratio Lipase Blood Type B POSITIVE Antibody Screen NEGATIVE 07/14/22 20:38 WBC RBC Hgb Hct MCV MCH MCHC RDW Plt Count MPV Neut # (Auto) Lymph # (Auto) [place] # (Auto) Eos # (Auto) Baso # (Auto) Absolute Nucleated RBC Nucleated RBC % PT INR Sodium 134 L Potassium 3.7 Chloride 101 Carbon Dioxide 25 Anion Gap 8.0 BUN 16 Creatinine 0.8 Estimated GFR (MDRD) 96 Glucose 126 H Calcium 8.8 Total Bilirubin 0.4 AST 25 ALT 39 Alkaline Phosphatase 56 Total Protein 7.4 Albumin 3.5 Globulin 3.9 Albumin/Globulin Ratio 0.9 L Lipase 46 Blood Type Antibody Screen PD MEDICAL DECISION MAKING - ED course Complexity details: reviewed results, re-evaluated patient, considered differential, d/w patient, d/w family (spouse (in ED at bedside)) ED course: c/o n/v/d that began 3 days ago with n/v resolved but persistent diarrhea that turned black after taking peptobismol. Guaiac negative on tonight's testing. Normal CBC and no concerning findings on BMP (134 Na, 126 glu). Nontender abdomen on exam. Black stool is likely due to the pepto-bismol. Etiology of the n/v/d is not apparent but tonight's test results, combined with patient's unremarkable physical exam and well-appearing/NAD, do not suggest serious etiology. Return precautions discussed. Departure - Departure Disposition: 01 Home, Self Care Clinical Impression: Diarrhea Condition: Good Instructions: Diarrhea Follow-Up: Simone Rider MD [Primary Care Provider] - Comments: The results of tonight's tests are unremarkable. There was no evidence of blood in the stool. Your white blood cell and red blood cell counts are normal. The cause of your symptoms is unclear at this time, but the cause of the black stool is likely due to pepto bismol. You should stop taking this medication to eliminate that variable, as there are other anti-diarrheal medications available [id number] (such as immodium). Discharge Date/Time: 07/14/22 22:28
[2022-07-14 20:44] LABS: BASOPHILS # (AUTO) 0.1 10^3/uL (0.0-0.1); BASOPHILS % (AUTO) 0.6 %; EOSINOPHILS # (AUTO) 0.2 10^3/uL (0.0-0.7); EOSINOPHILS % (AUTO) 2.3 %; HCT - HEMATOCRIT 45.8 % (42.0-52.0); HGB - HEMOGLOBIN 15.2 g/dL (14.0-18.0); LYMPHOCYTES # (AUTO) 3.6 10^3/uL (1.5-3.5); LYMPHOCYTES % (AUTO) 36.1 %; MEAN CORPUSCULAR HEMOGLOBIN 29.1 pg (27.0-31.0); MEAN CORPUSCULAR HGB CONC 33.2 g/dL (32.0-36.0); MEAN CORPUSCULAR VOLUME 87.6 fL (80.0-94.0); MEAN PLATELET VOLUME 9.4 fL (7.4-11.4); MONOCYTES # (AUTO) 0.8 10^3/uL (0.0-1.0); MONOCYTES % (AUTO) 8.2 %; NEUTROPHILS # (AUTO) 5.1 10^3/uL (1.5-6.6); NEUTROPHILS % (AUTO) 52.3 %; PLT - PLATELET COUNT 296 10^3/uL (130-450); RED BLOOD COUNT 5.23 10^6/uL (4.70-6.10); RED CELL DISTRIBUTION WIDTH 12.5 % (12.0-15.0); WHITE BLOOD COUNT 9.8 x10^3/uL (4.8-10.8)
[2022-07-14 20:56] LABS: ALBUMIN 3.5 g/dL (3.2-5.5); ALBUMIN/GLOBULIN RATIO 0.9 (1.0-2.2); BILIRUBIN,TOTAL 0.4 mg/dL (0.2-1.0); CALCIUM 8.8 mg/dL (8.5-10.3); CREATININE 0.8 mg/dL (0.6-1.2); POTASSIUM 3.7 mmol/L (3.5-5.0); TOTAL PROTEIN 7.4 g/dL (6.7-8.2)
[2022-07-14 21:02] LABS: INR 1.3 (0.8-1.2); PT - PROTHROMBIN TIME 13.8 secs (9.9-12.6)
== END 2022-07-14 22:28 | disposition home or self-care (01) ==
LOC: ED 19:51
DX: R19.7 Diarrhea, unspecified (principal); I10 Essential (primary) hypertension; E66.9 Obesity, unspecified; E11.8 Type 2 diabetes mellitus with unspecified complications; F17.200 Nicotine dependence, unspecified, uncomplicated
CPT/HCPCS: 36415; 80048; 80053; 82043; 82272; 82570; 83036; 83690; 85025; 85610; 86850; 86900; 86901; 99283

== ENCOUNTER 2022-08-12 08:18 | Outpatient (CLI) | payer MEDICARE, OTHER ==
[2022-08-12 08:47] VITALS: BP 132/78
--- NOTE | 2022-08-12 08:47 | SLEEP CARE CONSULTATION ---
Information from patient questionnaire entered by Sammy Kessler. I have reviewed and concur with the information entered by Sammy Kessler. This document represents the service I personally performed and the decisions made by me, Mallory Broderick ARNP. History of Present Illness Service Date and Time: 08/12/2022 0818 Previous diagnosis: Very Severe, Obstructive Sleep Apnea-Hypopnea Syndrome AHI: 60.5 (in 2013) Reason for follow up: annual (last seen 06/2021) Equipment type: BiPAP (dream station) Equipment obtained from: [employer] (getting supplies as needed) Mask style: Nasal pillows Backup mask available: Yes (old mask) Last cushion change: 1 week Prior sleep studies: Yes Year and Where: 2013 - [facility] Type of Sleep Study: Polysomnography HPI additional information: KEYONNA GUERRERO was diagnosed to have very severe, AHI 60.5, obstructive sleep apnea-hypopnea syndrome and returned today for BIPAP therapy annual follow-up. Sleep Study - Results Type of Sleep Study: Polysomnography Prior sleep studies: Yes Year and Where: 2013 - [facility] CPAP Compliance Data - Data Reviewed with Patient Average duration of nightly device use: 10 hrs, 9 min, 1sec Compliance rate %: 99.4 (02/11/2022-08/09/2022) Current pressure setting (cmH2O): 20/14 Average residual AHI: 0.6 Central apnea: 0.1 Obstructive apnea: 0.2 Subjective Patient concerns: denies: aerophagia, mask discomfort, air blowing in eyes, mask leak noise, condensation in mask/hose, nasal congestion, dry mouth, nose, throat, epistaxis Observed to snore while using device: No Current pressure setting perceived as: comfortable On therapy, patient: reports: sleeping better, awakening more refreshed, being more awake and alert during the day, more rested overall. denies: drowsiness while driving Initial [place] Sleepiness Scale score: 11 (in 2013) Current [place] Sleepiness Scale score: 6 (08/12/2022) Allergies and Home Medications Drug allergies reviewed: Yes (penicillin) Home medication list reviewed: Yes (Glimepiride 2 mg daily) Allergy and home medication list: Allergies Penicillins Allergy (Unknown, Verified 07/14/22 20:05) Unknown Review of Systems Review of systems same as previous: Yes ( no changes) Physical Exam Vital signs obtained and entered by: SAMMY Ellis MA Blood Pressure: 132/78 (left arm) Cuff size: regular Heart Rate: 100 O2 Saturation: 99 Height: 5 ft 11 in Weight: 284 lb 12.8 oz Weight change since last visit: 7 lb loss Body Mass Index: 39.6 BMI Classification: Obese Impression and Plan 1. Obstructive Sleep Apnea-Hypopnea Syndrome, very severe, with good treatment compliance and good apnea control. On CPAP therapy, the patient has better sleep quality and is more rested overall. Patient has significant improvement of their sleep apnea and are satisfied with current CPAP therapy. Patient denies problems with oral dryness, nasal congestion, epistaxis, skin irritation or aerophagia. Patient's apnea severity and rationale for treatment to reduce apnea, improve sleep quality and reduce cardiovascular and cerebrovascular events was reviewed. I also reviewed the benefit of consistent device use of CPAP for hypertension. 2. Obesity, unspecified. Currently patients BMI is 39.6. Patient has lost about 7 pounds since his last visit. He continues to try to lose weight. Obesity increases the risk of apnea, CPAP pressure requirements and overall health risks especially cardiovascular and diabetes. Thus patient is advised to continue to try to lose weight. * Continue BIPAP pressure at 20/14 cmH2O * Update supplies * Notify me if snoring with mask or feeling that the pressure is too much or too little * Attempt to lose weight * Call this office if any problems using CPAP * Return for follow up in 1 year, or sooner if concerns arise Counseling Topics: Spare mask, Weight loss health impact Visit Type: In Office Time Spent with Patient (minutes): 12 Provider Statement: I spent 100% of the Face to Face Visit with the patient with greater than 50% spent counseling the patient and coordination of care.
== END 2022-08-12 08:19 | disposition home or self-care (01) ==
LOC: SC 08:18
PROVIDERS: ATTEND Nurse Practitioner Family
DX: G47.33 Obstructive sleep apnea (adult) (pediatric) (principal); E66.9 Obesity, unspecified; Z68.39 Body mass index [BMI] 39.0-39.9, adult
CPT/HCPCS: 99212; G0463

== ENCOUNTER 2022-10-13 07:03 | Outpatient (CLI) | payer MEDICARE, OTHER ==
[2022-10-13 07:36] LABS: BASOPHILS # (AUTO) 0.1 10^3/uL (0.0-0.1); BASOPHILS % (AUTO) 0.5 %; EOSINOPHILS # (AUTO) 0.2 10^3/uL (0.0-0.7); EOSINOPHILS % (AUTO) 1.6 %; HCT - HEMATOCRIT 47.5 % (42.0-52.0); HGB - HEMOGLOBIN 15.4 g/dL (14.0-18.0); LYMPHOCYTES # (AUTO) 3.8 10^3/uL (1.5-3.5); LYMPHOCYTES % (AUTO) 34.2 %; MEAN CORPUSCULAR HEMOGLOBIN 27.9 pg (27.0-31.0); MEAN CORPUSCULAR HGB CONC 32.4 g/dL (32.0-36.0); MEAN CORPUSCULAR VOLUME 86.1 fL (80.0-94.0); MEAN PLATELET VOLUME 9.9 fL (7.4-11.4); MONOCYTES # (AUTO) 0.7 10^3/uL (0.0-1.0); MONOCYTES % (AUTO) 6.7 %; NEUTROPHILS # (AUTO) 6.2 10^3/uL (1.5-6.6); NEUTROPHILS % (AUTO) 56.8 %; PLT - PLATELET COUNT 278 10^3/uL (130-450); RED BLOOD COUNT 5.52 10^6/uL (4.70-6.10); RED CELL DISTRIBUTION WIDTH 13.7 % (12.0-15.0)
[2022-10-13 07:36] LABS: CREATININE,URINE 178.5 mg/dL; MICROALBUM/CREATININE RATIO,UR 25.2 ug/mg (<30.0); MICROALBUMIN,URINE 4.5 mg/dL (0-300.0)
[2022-10-13 07:40] LABS: ALBUMIN/GLOBULIN RATIO 0.9 (1.0-2.2); ALKALINE PHOSPHATASE 69 IU/L (42-121); ALT ALANINE AMINOTRANSFERASE 26 IU/L (10-60); AST ASPARTATE AMINOTRANSFERASE 17 IU/L (10-42); BUN - BLOOD UREA NITROGEN 16 mg/dL (6-20); CALCIUM 9.2 mg/dL (8.5-10.3); CARBON DIOXIDE - CO2 27 mmol/L (21-32); CHLORIDE 96 mmol/L (101-111); CHOL/HDL RATIO 5.1 (<5.0); CHOLESTEROL 178 mg/dL; CREATININE 0.9 mg/dL (0.6-1.2); GFR - MDRD 84 (>89); GLUCOSE 151 mg/dL (70-100); HDL CHOLESTEROL 35 mg/dL; LDL CHOLESTEROL,CALCULATED 125 mg/dL; LDL/HDL RATIO 3.6 (<3.6); POTASSIUM 4.2 mmol/L (3.5-5.0); SODIUM 133 mmol/L (135-145); TOTAL PROTEIN 8.3 g/dL (6.7-8.2); TRIGLYCERIDES 90 mg/dL; VLDL CHOLESTEROL 18 mg/dL
[2022-10-13 07:52] LABS: THYROID STIMULATING HORMONE 1.31 uIU/mL (0.34-5.60)
[2022-10-13 08:36] LABS: ESTIMATED AVERAGE GLUCOSE 148 mg/dL (70-100); HEMOGLOBIN A1c% 6.8 % (4.27-6.07)
== END 2022-10-13 07:04 | disposition home or self-care (01) ==
LOC: LAB 07:03
PROVIDERS: ATTEND Family Medicine
DX: I10 Essential (primary) hypertension (principal); E66.9 Obesity, unspecified; J44.9 Chronic obstructive pulmonary disease, unspecified; M17.0 Bilateral primary osteoarthritis of knee; E11.8 Type 2 diabetes mellitus with unspecified complications
CPT/HCPCS: 36415; 80053; 80061; 82043; 82570; 83036; 83721; 84443; 85025

== ENCOUNTER 2023-01-21 07:26 | Outpatient (CLI) | payer MEDICARE, OTHER ==
[2023-01-21 07:46] LABS: CALCIUM 8.6 mg/dL (8.5-10.3); CREATININE 0.9 mg/dL (0.6-1.2)
[2023-01-21 11:57] LABS: ESTIMATED AVERAGE GLUCOSE 143 mg/dL (70-100); HEMOGLOBIN A1c% 6.6 % (4.27-6.07)
== END 2023-01-21 07:27 | disposition home or self-care (01) ==
LOC: LAB 07:26
PROVIDERS: ATTEND Family Medicine
DX: I10 Essential (primary) hypertension (principal); E11.9 Type 2 diabetes mellitus without complications; E66.9 Obesity, unspecified
CPT/HCPCS: 36415; 80048; 83036

== ENCOUNTER 2023-01-25 11:55 | Outpatient (CLI) | payer MEDICARE, OTHER | END 2023-01-25 11:56 | disposition critical access hospital (66) | LOC: EMS 11:55 | DX: R06.00 Dyspnea, unspecified (principal); R05.9 Cough, unspecified; R09.3 Abnormal sputum | CPT/HCPCS: A0425; A0427 ==

== ENCOUNTER 2023-01-25 12:18 | Inpatient (IN) | payer MEDICARE, OTHER ==
[2023-01-25] MEDS ORDERED: ALBUTEROL NEB 2.5 MG/3 ML INH STA ×2 (12:24→12:51)
--- NOTE | 2023-01-25 12:27 | ED Physician Documentation ---
History of Present Illness - Stated complaint Stated Complaint: SOA - Additonal information Additional information: 67-year-old male presents to the emergency department via EMS for evaluation of shortness of air. Reportedly he has had a upper respiratory illness for about 2 weeks. He was seen at his PCPs office this morning and found that he had sats of about 82. Saturations improved to 90% when given 4 L nasal cannula. The patient is a daily tobacco user 1 pack/day. Reports [employer] vaccines. States that over the last several weeks he has had intermittent fevers. He has had a productive cough. He denies chest pain. Denies any history of heart attack or COPD. He has never required oxygen in the past. EMS administered the patient a DuoNeb. They found that he had diminished breath sounds with crackles. They also administered 125 mg of Solu-Medrol. Presentation to the emergency department he is alert though labored. When briefly taken off his oxygen his saturations declined into the low 80s. He was placed back to 4 L nasal cannula which results in sat of 90-92% Review of Systems Constitutional: reports: Fever Respiratory: reports: Dyspnea, Cough. denies: Wheezing GI: reports: Reviewed and negative : reports: Reviewed and negative Skin: reports: Reviewed and negative Musculoskeletal: reports: Reviewed and negative PD PAST MEDICAL HISTORY - Past Medical History Cardiovascular: None Respiratory: Asthma, Sleep apnea, Other Neuro: None Endocrine/Autoimmune: Type 2 diabetes GI: Chronic constipation, Hemorrhoids : Nocturia, Frequency HEENT: Other Psych: None Musculoskeletal: Osteoarthritis, Rheumatoid arthritis Derm: None - Past Surgical History Past Surgical History: Yes Ortho: Arthroscopic surgery, Other - Present Medications Home Medications: Ambulatory Orders Medication Instructions Recorded Confirmed Metoprolol Succinate [Toprol Xl] 25 mg PO BID 08/05/17 12/01/18 cloNIDine [Catapres] 0.1 mg PO BID 08/05/17 12/01/18 Nicotine 21 mg Patch [Nicoderm] 1 each TOP Q24H 08/09/17 12/01/18 Albuterol Sulfate [Proair Hfa 1 - 2 puffs INH Q4H PRN 12/01/18 12/01/18 Inhaler] Aspirin 81 mg PO DAILY 12/01/18 12/01/18 Docusate Sodium 250Mg Capsule 250 mg PO TID 12/01/18 12/01/18 [Colace 250Mg Capsule] Ciprofloxacin/Hydrocortisone 3 drops LEFTEAR QID 4 Days #1 07/21/20 [Cipro Hc Otic Suspension] bottle Glimepiride [Amaryl] See Rx Instructions .ROUTE .COMPLEX 08/12/22 08/12/22 - Allergies Allergies/Adverse Reactions: Allergies Allergy/AdvReac Type Severity Reaction Status Date / Time Penicillins Allergy Unknown Unknown Verified 01/25/23 12:28 - Social History Does the pt smoke?: Yes Smoking Status: Current every day smoker Does the pt drink ETOH?: Yes Does the pt have substance abuse?: No - Immunizations Immunizations are current?: No - POLST Patient has POLST: No PD ED PE NORMAL - General General: Alert and oriented X 3, No acute distress - HEENT HEENT: Atraumatic, Moist mucous membranes - Neck Neck: Supple, no meningeal sign - Cardiac Cardiac: RRR. No: No murmur (2/6 systolic murmur) - Respiratory Respiratory: No: No respiratory distress (Mild tachypnea and labored respirations. Diffusely diminished breath sounds in all lung kaye. Some faint crackles at the bases.), Clear bilaterally - Abdomen Abdomen: Normal bowel sounds, Soft Results - Vitals Vitals: Vital Signs - 24 hr 01/25/23 01/25/23 01/25/23 12:24 12:48 13:08 Heart Rate 113 H 89 88 Respiratory 30 H 18 19 Rate Blood Pressure 130/119 H O2 Saturation 90 L If not protocol 4 4 : Oxygen Flow, liters/minute 01/25/23 13:34 Heart Rate 103 H Respiratory 28 H Rate Blood Pressure 136/66 H O2 Saturation 86 L If not protocol : Oxygen Flow, liters/minute Oxygen O2 Source Room air Oxygen Flow Rate 3 - EKG (time done) 1224 EKG releavant findings:: EKG personally interpreted by author of this note. Relevant findings are: Rate: Rate (enter#) (109) Rhythm: Sinus tachycardia [place]: Anterior hemiblock Intervals: Normal AR, RBBB. No: Prolonged QT Ischemia: Non specific changes Compare to prior EKG: Changed from prior EKG Computer interpretation: Agree with computer - Labs Labs: Laboratory Tests 01/25/23 01/25/23 01/25/23 12:27 12:42 12:42 WBC 12.4 H RBC 5.38 Hgb 15.1 Hct 45.6 MCV 84.8 MCH 28.1 MCHC 33.1 RDW 13.7 Plt Count 270 MPV 10.4 Neut # (Auto) 9.2 H Lymph # (Auto) 1.9 [place] # (Auto) 1.2 H Eos # (Auto) 0.0 Baso # (Auto) 0.0 Absolute Nucleated RBC 0.00 Nucleated RBC % 0.0 PT 16.1 H INR 1.5 H Sodium Potassium Chloride Carbon Dioxide Anion Gap BUN Creatinine Estimated GFR (MDRD) Glucose Calcium Total Bilirubin AST ALT Alkaline Phosphatase B-Natriuretic Peptide Total Protein Albumin Globulin Albumin/Globulin Ratio Lipase Nasal Adenovirus (PCR) NOT DETECTED Nasal B. parapertussis DNA (PCR) NOT DETECTED Nasal Coronavir 229E PCR NOT DETECTED Nasal Coronavir HKU1 PCR NOT DETECTED Nasal Coronavir NL63 PCR NOT DETECTED Nasal Coronavir OC43 PCR NOT DETECTED Nasal Enterovir/Rhinovir PCR NOT DETECTED Nasal Influenza B PCR NOT DETECTED Nasal Influenza A PCR NOT DETECTED Nasal Parainfluen 1 PCR NOT DETECTED Nasal Parainfluen 2 PCR NOT DETECTED Nasal Parainfluen 3 PCR NOT DETECTED Nasal Parainfluen 4 PCR NOT DETECTED Nasal RSV (PCR) NOT DETECTED Nasal B.pertussis DNA PCR NOT DETECTED Nasal C.pneumoniae (PCR) NOT DETECTED [place] Human Metapneumo PCR NOT DETECTED Nasal M.pneumoniae (PCR) NOT DETECTED Nasal SARS-CoV-2 (PCR) NOT DETECTED 01/25/23 01/25/23 12:42 12:42 WBC RBC Hgb Hct MCV MCH MCHC RDW Plt Count MPV Neut # (Auto) Lymph # (Auto) [place] # (Auto) Eos # (Auto) Baso # (Auto) Absolute Nucleated RBC Nucleated RBC % PT INR Sodium 131 L Potassium 3.2 L Chloride 94 L Carbon Dioxide 26 Anion Gap 11.0 BUN 19 Creatinine 0.8 Estimated GFR (MDRD) 96 Glucose 139 H Calcium 8.7 Total Bilirubin 0.9 AST 45 H ALT 59 Alkaline Phosphatase 59 B-Natriuretic Peptide 38 Total Protein 7.9 Albumin 3.3 Globulin 4.6 H Albumin/Globulin Ratio 0.7 L Lipase 27 Nasal Adenovirus (PCR) Nasal B. parapertussis DNA (PCR) Nasal Coronavir 229E PCR Nasal Coronavir HKU1 PCR Nasal Coronavir NL63 PCR Nasal Coronavir OC43 PCR Nasal Enterovir/Rhinovir PCR Nasal Influenza B PCR Nasal Influenza A PCR Nasal Parainfluen 1 PCR Nasal Parainfluen 2 PCR Nasal Parainfluen 3 PCR Nasal Parainfluen 4 PCR Nasal RSV (PCR) Nasal B.pertussis DNA PCR Nasal C.pneumoniae (PCR) [place] Human Metapneumo PCR Nasal M.pneumoniae (PCR) Nasal SARS-CoV-2 (PCR) - Rads (name of study) cxr Relevant Findings:: Final report received (Pulmonary vascular congestion and suggestion of mild pulmonary edema. Underlying bilateral lower lobe infiltrates versus atelectasis cannot be excluded. No pleural effusion or pneumothorax), EMP independent interpretation of test PD Medical Decision Making - ED course Complexity details: reviewed results, re-evaluated patient, considered differential, d/w patient ED course: 67-year-old male presents emergency department via EMS HeFor ED evaluation of shortness of air. Has had an upper respiratory infection for about 2 weeks. He was at his PCP office the same for evaluation of this and they noted room air sats of 82%. EMS was summoned. EMS placed patient on 4 L nasal cannula with a rise in sats to 90%. In route to the ER he was administered 125 mg Solu-Medrol and was given a single dose of DuoNeb nebulizer. On presentation to the ER the patient is mildly tachypneic in the 30s. Room air saturations were 82% but with 4 L nasal cannula and they rosa to 90. Pulmonary auscultation revealed faint and absent breath sounds in most of the lung field sparing mild crackles in the lower bases. I initially administered 2.5 mg of albuterol via nebulizer and on reevaluation though he is still tachypneic and labored he appeared now wheezy. Thus a second dose of 2 and half milligrams of albuterol via nebulizer was again administered. He remains wheezy though reports he feels better. Chest x-ray is interpreted both by myself and the radiologist is consistent with volume overload as well as likely infiltrates in the bilateral lower lobes. With this finding he was administered a gram of ceftriaxone as well as azithromycin. Blood cx X2 are pending. With the concern for volume overload he was also administered 40 mg of Lasix IV. Did obtain a CBC and electrolytes. There is mild leukocytosis with white count of about 13,000. His electrolytes showed mild hyponatremia. BNP is not markedly elevated. Respiratory PCR is negative Patient's EKG per my interpretation showed a right bundle branch block unchanged. Patient denied any chest pain thus troponin was deferred. This gentleman presents in hypoxic respiratory failure. He is an active daily tobacco user. I suspect there is component of CHF as well as a COPD exacerbation and pneumonia. Given the hypoxia he will be admitted to the hospital for further evaluation and management of this I spoke with Dr. Salgado who graciously agrees to bring the patient in. Departure - Departure Disposition: 66 [facility] DC/Xfer Clinical Impression: Tobacco abuse, Hyponatremia Respiratory failure with hypoxia Qualifiers: Chronicity: acute Qualified Code(s): J96.01 - Acute respiratory failure with hypoxia CHF (congestive heart failure) Qualifiers: Heart failure type: unspecified Heart failure chronicity: unspecified Qualified Code(s): I50.9 - Heart failure, unspecified Pneumonia Qualifiers: Pneumonia type: due to unspecified organism Laterality: bilateral Lung location: lower lobe of lung Qualified Code(s): J18.9 - Pneumonia, unspecified organism COPD (chronic obstructive pulmonary disease) Qualifiers: COPD type: unspecified COPD Qualified Code(s): J44.9 - Chronic obstructive pulmonary disease, unspecified
[2023-01-25] MEDS ORDERED: FUROSEMIDE 40 MG/4 ML VIAL IVP STA (12:44)
[2023-01-25] MEDS ORDERED: cefTRIAXone 1 GM in SODIUM CHLORIDE 0.9% MINIBAG 100 ML IV STA (12:45)
[2023-01-25] MEDS ORDERED: AZITHROMYCIN INJ 500 MG in SODIUM CHLORIDE 0.9% 250 ML IV STA (12:45)
[2023-01-25 12:52] LABS: BASOPHILS % (AUTO) 0.3 %; EOSINOPHILS % (AUTO) 0.1 %; HCT - HEMATOCRIT 45.6 % (42.0-52.0); HGB - HEMOGLOBIN 15.1 g/dL (14.0-18.0); LYMPHOCYTES # (AUTO) 1.9 10^3/uL (1.5-3.5); LYMPHOCYTES % (AUTO) 15.3 %; MEAN CORPUSCULAR HEMOGLOBIN 28.1 pg (27.0-31.0); MEAN CORPUSCULAR HGB CONC 33.1 g/dL (32.0-36.0); MEAN CORPUSCULAR VOLUME 84.8 fL (80.0-94.0); MEAN PLATELET VOLUME 10.4 fL (7.4-11.4); MONOCYTES # (AUTO) 1.2 10^3/uL (0.0-1.0); MONOCYTES % (AUTO) 9.4 %; NEUTROPHILS # (AUTO) 9.2 10^3/uL (1.5-6.6); NEUTROPHILS % (AUTO) 74.3 %; PLT - PLATELET COUNT 270 10^3/uL (130-450); RED BLOOD COUNT 5.38 10^6/uL (4.70-6.10); RED CELL DISTRIBUTION WIDTH 13.7 % (12.0-15.0); WHITE BLOOD COUNT 12.4 x10^3/uL (4.8-10.8)
--- NOTE | 2023-01-25 13:00 | XRAY Report ---
PROCEDURE: Chest 1 View X-Ray INDICATIONS: Chest Pain TECHNIQUE: One view of the chest was acquired. COMPARISON: None. FINDINGS: Surgical changes and devices: None. Lungs and pleura: No pleural effusions or pneumothorax. Ill-defined airspace opacities are seen scat tered in bilateral mid to lower lung kaye. Mild pulmonary vascular congestion is also seen. Mediastinum: Mediastinal contours appear normal. Heart size is normal. Bones and chest wall: No suspicious bony lesions. Overlying soft tissues appear unremarkable. IMPRESSION: Pulmonary vascular congestion and suggestion of mild pulmonary edema. Underlying bilateral lower lobe infiltrates versus atelectasis cannot be excluded. No pleural effusion or pneumothorax. Reviewed by: Adan Garcia MD on 01/25/2023 12:59 PM PDT Approved by: Adan Garcia MD on 01/25/2023 12:59 PM PDT Station ID: [id number]
[2023-01-25 13:02] LABS: INR 1.5 (0.8-1.2); PT - PROTHROMBIN TIME 16.1 secs (9.9-12.6)
[2023-01-25 13:03] LABS: ALBUMIN 3.3 g/dL (3.2-5.5); ALBUMIN/GLOBULIN RATIO 0.7 (1.0-2.2); BILIRUBIN,TOTAL 0.9 mg/dL (0.2-1.0); CALCIUM 8.7 mg/dL (8.5-10.3); CREATININE 0.8 mg/dL (0.6-1.2); POTASSIUM 3.2 mmol/L (3.5-5.0); TOTAL PROTEIN 7.9 g/dL (6.7-8.2)
[2023-01-25 13:29] LABS: B. PARAPERTUSSIS- RESP PCR PAN NOT DETECTED; B. PERTUSSIS- RESP PCR PANEL NOT DETECTED; C. PNEUMONIAE- RESP PCR PANEL NOT DETECTED; CORONAVIRUS 229E-RESP PCR NOT DETECTED; CORONAVIRUS HKU1-RESP PCR NOT DETECTED; CORONAVIRUS NL63-RESP PCR NOT DETECTED; CORONAVIRUS OC43-RESP PCR NOT DETECTED; HUMAN METAPNEUMOVIRUS NOT DETECTED; INFLUENZA A- RESP PCR PANEL NOT DETECTED; INFLUENZA B - RESP PCR PANEL NOT DETECTED; M. PNEUMONIAE- RESP PCR PANEL NOT DETECTED; PARAINFLUENZA VIRUS 1 NOT DETECTED; PARAINFLUENZA VIRUS 2 NOT DETECTED; PARAINFLUENZA VIRUS 3 NOT DETECTED; PARAINFLUENZA VIRUS 4 NOT DETECTED; RHINOVIRUS/ENTEROVIRUS NOT DETECTED; RSV- RESP PCR PANEL NOT DETECTED; SARS-CoV-2 -RESP PCR PANEL NOT DETECTED
[2023-01-25] MEDS ORDERED: ONDANSETRON 4 MG/2 ML VIAL IVP PRN (13:58)
[2023-01-25] MEDS ORDERED: ACETAMINOPHEN 325 MG TABLET PO PRN (13:58)
[2023-01-25] MEDS ORDERED: SODIUM CHLORIDE FLUSH 0.9% 10 ML SYRINGE IVP PRN (13:58)
[2023-01-25] MEDS ORDERED: IPRATROPIUM/ALBUTEROL 3 ML NEB INH PRN (14:04)
--- NOTE | 2023-01-25 14:09 | HISTORY & PHYSICAL EXAMINATION ---
Chief Complaint - Chief Complaint Chief Complaint: SOA History of Present Illness - Admitted From Admitted From:: ED - History Obtained From Records Reviewed: Yes History obtained from: ED provider and the patient - History of Present Illness HPI Comment/Other: This is a 67-year-old male with a history of obesity, smoker, type II Diabetic on oral agents, and sleep apnea on CPAP. He describes catching a virus from the grandchildrren which caused several weeks of diarrhea, which then resolved but he had nasal congestion and cough symptoms for about 2 weeks. He [address] himself to his PCP today. At their office he had an O2 saturation of 82% on room air and an ambulance was called. En route to the hospital the paramedics gave him Solu-Medrol 125 mg IV and a DuoNeb treatment and put him on oxygen at 4 L. In the ER, he was tachypneic with resp rate 30, and documented to have an O2 saturation of 86% on room air and has needed 3 or 4 L of suppl O2 per nasal cannula to achieve O2 sat of 90%. He was not moving air on initial ED provider exam and got a nebulizer treatment, then was wheezing and was given nebulizer treatment again. His chest x-ray showed possible CHF so he also got Lasix 40 mg IV. The final chest x-ray result was read as having probable bilateral pneumonia. His respiratory PCR panel is negative including COVID- negative. His COVID vaccinations are up to date. Blood cultures were obtained and he received IV Ceftriaxone and Zithromax in the ER. The ED provider contacted me and we spoke about this patient. He will be admitted to manage acute respiratory failure with hypoxia with a COPD exacerbation and community- acquired pneumonia. The patient and I discussed his CODE BLUE wishes and he wants to be a Full Code. History - Past Medical History Cardiovascular: reports: None Respiratory: reports: Asthma, COPD, Sleep apnea, CPAP use, Other (Had H1N1 pneumonia in 2017 was on vent, since then has needed CPAP and become a Diabetic) Neuro: reports: None Endocrine/Autoimmune: reports: Type 2 diabetes GI: reports: Chronic constipation, Hemorrhoids : reports: Nocturia, Frequency HEENT: reports: Other Psych: reports: None Musculoskeletal: reports: Osteoarthritis, Rheumatoid arthritis Derm: reports: None MRSA Hx?: No - Past Surgical History Ortho: reports: Arthroscopic surgery, Other - Family & Social History Living arrangement: At home Living Situation: With spouse/s.o., With family (He lives with his and their middle son, the son's and their 3 children) Social History Notes: He smoked 1-1/2 packs a day until 2 weeks ago when he was so short of breath that tobacco use has decreased to 3 cigarettes/day. He drinks rare alcohol every several weeks. He uses no illicit drugs. 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 - Substance History Dependence: Experiences withdrawal or developed tolerances: Tobacco - POLST Patient has POLST: No Meds/Allgy - Home Medications Home Medications: Ambulatory Orders Medication Instructions Recorded Confirmed Metoprolol Succinate [Toprol Xl] 25 mg PO BID 08/05/17 01/25/23 cloNIDine [Catapres] 0.1 mg PO BID 08/05/17 01/25/23 Nicotine 21 mg Patch [Nicoderm] 1 each TOP Q24H PRN 08/09/17 01/25/23 Albuterol Sulfate [Proair Hfa 1 - 2 puffs INH Q4H PRN 12/01/18 01/25/23 Inhaler] Aspirin 81 mg PO DAILY 12/01/18 01/25/23 Docusate Sodium 250Mg Capsule 250 mg PO BID PRN 12/01/18 01/25/23 [Colace 250Mg Capsule] Glimepiride [Amaryl] 1 tab PO DAILY 08/12/22 01/25/23 Acetaminophen [Tylenol] 1 - 2 tab PO TID PRN 01/25/23 01/25/23 Ibuprofen 1 - 3 tab PO TID PRN 01/25/23 01/25/23 Metformin HCl 1 tab PO BID 01/25/23 01/25/23 - Allergies Allergies/Adverse Reactions: Allergies Allergy/AdvReac Type Severity Reaction Status Date / Time Penicillins Allergy Unknown Unknown Verified 01/25/23 12:28 Review of Systems - Constitutional Constitutional: reports: Weakness (He has lost weight and has felt weak in the last 5 weeks since the diarrhea started and then the 2 weeks with shortness of), Weight loss - Respiratory Respiratory: reports: Cough, Sputum production, SOB at rest, SOB with exertion - All Other Systems All Other Systems: reports: Reviewed and negative Exam - Vital Signs Vital Signs: Vital Signs x48h Pulse Resp BP Pulse Ox O2 Flow Rate 01/25/23 13:34 103 H 28 H 136/66 H 86 L 01/25/23 13:08 88 19 4 01/25/23 12:48 89 18 4 01/25/23 12:24 113 H 30 H 130/119 H 90 L - Physical Exam General Appearance: positive: Moderate distress (He stops talking to take a breath every 3 words, at midsentence. He is wearing O2 per nasal cannula), Other (Appears disheveled) Eyes Bilateral: positive: Normal inspection, EOMI ENT: positive: Dry mucous membranes, Other (Several missing front teeth) Neck: positive: Nml inspection Respiratory: positive: Wheezes, Other (Very poor air movement in all lung kaye anteriorly and posterior) Cardiovascular: positive: Regular rate & rhythm, Other (Distant heart sounds due to increased AP diameter and air trapping from COPD) Abdomen: positive: Non-tender, No distention, Other (Obese) Skin: positive: Warm, Dry Extremities: positive: Non-tender, No pedal edema Neurologic/Psychiatric: positive: Oriented x3, Motor nml Conclusion/Plan - Problem List (1) Acute respiratory failure with hypoxia Conclusion/Plan: This is caused by his COPD exacerbation plus the pneumonia Plan: Continue with supplemental oxygen, target saturations will be 88% or above in a COPDer We will treat the underlying COPD exacerbation and the pneumonia (2) COPD with exacerbation Conclusion/Plan: This is likely caused by his pneumonia and continued smoking Plan: We will order scheduled DuoNebs and as needed We will continue with IV steroids using Solu-Medrol We will order montelukast We will order Mucinex for pulmonary toilet Continue supplemental O2, target saturations will be 88% and above (3) CAP (community acquired pneumonia) Conclusion/Plan: Per chest x-ray result, he has bilateral basal pneumonia Plan: We will treat with empiric IV ceftriaxone and IV Zithromax Await blood culture results, and obtain a sputum culture if you make sputum We will start probiotic We will order Mucinex for pulmonary toilet (4) Tobacco abuse Conclusion/Plan: The patient admitted to smoking 1 and 1/2 PPD, until this URI 2 weeks ago made him so SOB that he has had only 3/day. Plan: We will start nicotine patch (5) DM type 2 (diabetes mellitus, type 2) Conclusion/Plan: Plan: We will order a diabetic diet, fingerstick checks, sliding scale insulin coverage and hypoglycemia protocol Will continue his glimepiride We will hold the metformin in case any imaging with CT dye is needed Check A1c with a.m. labs (6) Obesity (BMI 35.0-39.9 without comorbidity) Conclusion/Plan: This may be the cause of his sleep apnea and makes his care difficult (7) CHF exacerbation Conclusion/Plan: The chest x-ray does report probable volume overload and he did receive Lasix IV x1 in the ER Subsequently BNP came back normal at 38 Plan: We will not continue with IV Lasix Will order his usual cardiac medications, once a proper medication list is reconciled by pharmacy We will obtain an Echo to assess LVEF and RVEF - Lab Results Fish Bones: 01/25/23 12:42 01/25/23 12:42 - Diagnostic Imaging Results Diagnostic Imaging Results: positive: Final report reviewed - Other Other Results/Comments: Attestation: The patient is expected to be discharged or transferred to another facility within 96 hours: Yes.
--- NOTE | 2023-01-25 14:57 | PHARMACY PROGRESS NOTE ---
- Best Possible Medication History Admit Date and Time: 01/25/23 1350 Processed by: Pharmacy Medication History completed: Yes Patient Interview: Completed Secondary Source(s): Pharmacy records (Pt fills at the [facility] pharmacy) As the person ultimately responsible for medication therapy, providers are able to order a medication from an existing home medication list in [facility] via the "Reconcile Routine" prior to Confirmation of that medication by office support associate. Such practice is discouraged except when the physician, in their clinical judgment, deems that a medical need exists for a medication without regard to previous use.
[2023-01-25] MEDS: NICOTINE 14 MG PATCH TOP SCH (15:17)
[2023-01-25] MEDS: IPRATROPIUM/ALBUTEROL 3 ML NEB INH SCH ×2 (15:40→18:42)
[2023-01-25] MEDS ORDERED: DOCUSATE SODIUM 250 MG CAPSULE PO PRN (16:05)
[2023-01-25] MEDS: SODIUM CHLORIDE FLUSH 0.9% 10 ML SYRINGE IVP SCH (16:54)
[2023-01-25] MEDS: INSULIN LISPRO 300 UNIT/3 ML PEN SUBQ SCH ×2 (16:55→20:47)
[2023-01-25] MEDS: METOPROLOL SUCCINATE 25 MG TABLET PO SCH (20:45)
[2023-01-25] MEDS: cloNIDine 0.1 MG TABLET PO SCH (20:45)
[2023-01-25] MEDS: guaiFENesin 600 MG TABLET PO SCH (20:45)
[2023-01-25] MEDS: methylPREDNISolone SUCCINATE 40 MG/ML VIAL IVP SCH (22:12)
[2023-01-26] MEDS: SODIUM CHLORIDE FLUSH 0.9% 10 ML SYRINGE IVP SCH ×3 (01:00→16:49)
[2023-01-26] MEDS: methylPREDNISolone SUCCINATE 40 MG/ML VIAL IVP SCH ×3 (05:25→21:31)
[2023-01-26 05:29] LABS: BASOPHILS % (AUTO) 0.3 %; HCT - HEMATOCRIT 43.2 % (42.0-52.0); HGB - HEMOGLOBIN 14.4 g/dL (14.0-18.0); LYMPHOCYTES % (AUTO) 9.9 %; MEAN CORPUSCULAR HEMOGLOBIN 28.1 pg (27.0-31.0); MEAN CORPUSCULAR HGB CONC 33.3 g/dL (32.0-36.0); MEAN CORPUSCULAR VOLUME 84.4 fL (80.0-94.0); MEAN PLATELET VOLUME 10.5 fL (7.4-11.4); MONOCYTES # (AUTO) 0.5 10^3/uL (0.0-1.0); MONOCYTES % (AUTO) 5.5 %; NEUTROPHILS # (AUTO) 8.1 10^3/uL (1.5-6.6); NEUTROPHILS % (AUTO) 83.5 %; PLT - PLATELET COUNT 249 10^3/uL (130-450); RED BLOOD COUNT 5.12 10^6/uL (4.70-6.10); RED CELL DISTRIBUTION WIDTH 13.6 % (12.0-15.0); WHITE BLOOD COUNT 9.8 x10^3/uL (4.8-10.8)
[2023-01-26 05:37] LABS: CALCIUM 8.3 mg/dL (8.5-10.3); CREATININE 0.7 mg/dL (0.6-1.2); MAGNESIUM 2.5 mg/dL (1.7-2.8); POTASSIUM 3.6 mmol/L (3.5-5.0)
[2023-01-26] MEDS: IPRATROPIUM/ALBUTEROL 3 ML NEB INH SCH ×3 (07:03→16:19)
[2023-01-26] MEDS: NICOTINE 14 MG PATCH TOP SCH (08:01)
[2023-01-26] MEDS: guaiFENesin 600 MG TABLET PO SCH ×2 (08:02→21:31)
[2023-01-26] MEDS: ENOXAPARIN 40 MG/0.4 ML SYRINGE SUBQ SCH (08:02)
[2023-01-26] MEDS: cloNIDine 0.1 MG TABLET PO SCH ×2 (08:02→21:31)
[2023-01-26] MEDS: GLIMEPIRIDE 2 MG TABLET PO SCH (08:02)
[2023-01-26] MEDS: ASPIRIN CHEW 81 MG TABLET PO SCH (08:02)
[2023-01-26] MEDS: METOPROLOL SUCCINATE 25 MG TABLET PO SCH ×2 (08:02→21:31)
[2023-01-26] MEDS: INSULIN LISPRO 300 UNIT/3 ML PEN SUBQ SCH ×4 (08:06→21:31)
--- NOTE | 2023-01-26 08:12 | PROVIDER PROGRESS NOTE ---
Assessment/Plan - Problem List (1) Acute respiratory failure with hypoxia Assessment/Plan: This was caused by his COPD exacerbation plus the pneumonia. He is not on oxygen at home. With his low oxygen saturations he needed 4 L/min at admission yesterday. (VS were all reviewed) Overnight this increased to 6 L/min to achieve a sat of 90%. This morning he is on 3 L/min O2 Plan: Continue with supplemental oxygen, target saturations will be 88% or above in a COPDer Will continue to treat the underlying COPD exacerbation and the pneumonia (2) COPD with exacerbation Conclusion/Plan: This is likely caused by his pneumonia and continued smoking Plan: Continue the scheduled and prn DuoNebs Since he is moving air on exam today, we will start to decrease IV Solu-Medrol from 80 mg TID to 40 mg TID Continue new nightime Montelukast Continue Mucinex for pulmonary toilet Continue supplemental O2, target saturations will be 88% and above in a COPDer (3) CAP (community acquired pneumonia) Conclusion/Plan: Continue with empiric IV ceftriaxone and IV Zithromax Patient was able to produce a sputum sample and Gram stain shows white cells and gram-positive cocci with rare squamous cells Plan: Await blood culture results, and the sputum culture results We will add a probiotic Continue Mucinex for pulmonary toilet (4) Tobacco abuse Conclusion/Plan: The patient admitted to smoking 1 and 1/2 PPD, until this URI 2 weeks ago made him so SOB that he has had only 3/day. Plan: We will decrease the started nicotine patch from 14 mg to 7 mg top. daily. (5) DM type 2 (diabetes mellitus, type 2) On Solumedrol, he is testing fingerstick glu in the 200's. His A1c with a.m. labs came back at 6.7 indicating good glu control up until now Conclusion/Plan: Plan: We expected to see higher glucose levels, since he was put on Solu-Medrol 3 ti mes daily Continue a diabetic diet, fingerstick checks, sliding scale insulin coverage and hypoglycemia protocol Will continue his glimepiride We will hold the metformin in case any imaging with CT dye is needed (6) Obesity (BMI 35.0-39.9 without comorbidity) Conclusion/Plan: This may be the cause of his sleep apnea and makes his overall care difficult (7) CHF exacerbation Conclusion/Plan: Ruled out The chest x-ray did report probable volume overload and he did receive Lasix IV x1 in the ER Subsequently BNP came back normal at 38. Also, troponins were checked x2 and were essentailly normal. Plan: We will not continue with IV Lasix Will order his usual cardiac medications, once a proper medication list is reconciled by pharmacy - Current Meds Current Meds: Current Medications Generic Name Dose Route Start Last Admin Trade Name Daniel PRN Reason Stop Dose Admin Albuterol/Ipratropium 3 ml 01/25/23 15:00 01/26/23 07:03 Ipratropium/Albuterol 3 Ml Neb INH 3 ml RTQID WENDIE Administration Aspirin 81 mg 01/26/23 09:00 01/26/23 08:02 Aspirin Chew 81 Mg Tablet PO 81 mg DAILY WENDIE Administration Clonidine HCl 0.1 mg 01/25/23 21:00 01/26/23 08:02 Clonidine 0.1 Mg Tablet PO 0.1 mg BID WENDIE Administration Enoxaparin Sodium 40 mg 01/26/23 09:00 01/26/23 08:02 Enoxaparin 40 Mg/0.4 Ml Syringe SUBQ 40 mg DAILY WENDIE Administration Glimepiride 2 mg 01/26/23 09:00 01/26/23 08:02 Glimepiride 2 Mg Tablet PO 2 mg DAILY WENDIE Administration Guaifenesin 600 mg 01/25/23 21:00 01/26/23 08:02 Guaifenesin 600 Mg Tablet PO 600 mg BID WENDIE Administration Insulin Human Lispro 1 - 5 unit 01/25/23 17:00 01/25/23 20:47 Insulin Lispro 300 Unit/3 Ml Pen SUBQ 5 unit 0800,1200,1700,2100 WENDIE Administration Protocol Methylprednisolone 80 mg 01/25/23 22:00 01/26/23 05:25 Methylprednisolone Succinate 40 Mg/Ml Vial IVP 80 mg TID WENDIE Administration Metoprolol Succinate 25 mg 01/25/23 21:00 01/26/23 08:02 Metoprolol Succinate 25 Mg Tablet PO 25 mg BID WENDIE Administration Nicotine 1 patch 01/25/23 14:04 01/26/23 08:01 Nicotine 14 Mg Patch TOP 1 patch DAILY WENDIE Administration Sodium Chloride 10 ml 01/25/23 17:00 01/26/23 08:02 Sodium Chloride Flush 0.9% 10 Ml Syringe IVP 10 ml 0100,0900,1700 WENDIE Administration - Lab Result Fish Bone Diagrams: 01/27/23 05:31 01/27/23 05:31 - Additional Planning My Orders: My Active Orders 01/25/23 13:58 Activity Orders [RC] Q2HR IO [RC] IOSHIFT Incentive Spirometry - RT [RC] TID Initiate Bowel Care Protocol [RC] .protocol Initiate Bronchodialator Cris [RC] .PROTOCOL Initiate Line Care Protocol [RC] QSHIFT Initiate Personal Care Protoco [RC] .protocol Initiate Secretion Clearance P [RC] .PROTOCOL Oxygen Therapy [RC] .PRN Telemetry- [RC] Q4HR Vital Signs [RC] Q4HR Acetaminophen [Tylenol] 650 mg PO Q4HR PRN Ondansetron Inj [Zofran Inj] 4 mg IVP Q6HR PRN Sodium Chloride Flush 0.9% [Normal Saline Flush 0.9%] 10 ml IVP PRN PRN Code Status [OTHERS] Routine Condition of Patient [OTHERS] Routine DVT Prophylaxis [OTHERS] Routine 01/25/23 13:59 Daily Weight [RC] 0600 IV Insert [RC] .ONCE 01/25/23 14:00 Initiate Line Care Protocol [RC] QSHIFT 01/25/23 14:03 Blood Glucose Checks - Eating [RC] 0800,1200,1700,2100 Initiate Hypoglycemia Protocol [RC] .protocol 01/25/23 14:04 Ipratropium/Albuterol [Duoneb] 3 ml INH Q4HR PRN Nicotine 14 mg Patch [Nicoderm] 1 patch TOP DAILY 01/25/23 15:00 Ipratropium/Albuterol [Duoneb] 3 ml INH RTQID 01/25/23 16:05 Docusate Sodium 250Mg Capsule [Colace 250Mg Capsule] 250 mg PO BID PRN 01/25/23 Dinner Carb-controlled Diet [DIET] 01/25/23 17:00 Insulin Lispro [Humalog Kwikpen U-100] 1 - 5 unit SUBQ 0800,1200,1700,2100 Sodium Chloride Flush 0.9% [Normal Saline Flush 0.9%] 10 ml IVP 0100,0900,1700 01/25/23 17:01 Nebulizer/MDI Tx. [RC] .QID 01/25/23 21:00 Metoprolol Succinate [Toprol Xl] 25 mg PO BID cloNIDine [Catapres] 0.1 mg PO BID guaiFENesin [Mucinex] 600 mg PO BID 01/25/23 22:00 methylPREDNISolone SUCCINATE [SOLU-Medrol (40MG VIAL)] 80 mg IVP TID 01/25/23 22:48 RT [Home CPAP/BiPAP] [RC] .ONCE 01/26/23 CUL, RESPIRATORY [RM] Stat 01/26/23 05:20 HEMOGLOBIN A1c% [CHEM] DAILYLAB 01/26/23 09:00 Aspirin Chewable [[facility] Vadim Aspirin] 81 mg PO DAILY Enoxaparin [Lovenox] 40 mg SUBQ DAILY Glimepiride [Amaryl] 2 mg PO DAILY 01/27/23 05:00 BMP - BASIC METABOLIC PANEL [CHEM] DAILYLAB CBC - COMP BLD CT W/AUTO DIFF [HEME] DAILYLAB 01/28/23 05:00 BMP - BASIC METABOLIC PANEL [CHEM] DAILYLAB CBC - COMP BLD CT W/AUTO DIFF [HEME] DAILYLAB 01/29/23 05:00 BMP - BASIC METABOLIC PANEL [CHEM] DAILYLAB CBC - COMP BLD CT W/AUTO DIFF [HEME] DAILYLAB Subjective - Subjective Patient Reports: Feeling Better (Has less cough, minimal sputum production. Is no longer wheezing. Is less short of breath with activity.) Objective Vital Signs: Vital Signs - 24 hr 01/25/23 01/25/23 01/25/23 12:24 12:48 13:08 Temperature Heart Rate 113 H 89 88 Heart Rate [ Brachial] Respiratory 30 H 18 19 Rate Blood Pressure 130/119 H Blood Pressure [Right Brachial artery] O2 Saturation 90 L If not protocol 4 4 : Oxygen Flow, liters/minute 01/25/23 01/25/23 01/25/23 13:34 14:46 14:49 Temperature 36.6 C Heart Rate 103 H Heart Rate [ 108 H Brachial] Respiratory 28 H 24 Rate Blood Pressure 136/66 H Blood Pressure 149/75 H [Right Brachial artery] O2 Saturation 86 L 90 L If not protocol 4 4 : Oxygen Flow, liters/minute 01/25/23 01/25/23 01/25/23 16:44 17:02 18:43 Temperature Heart Rate 79 78 Heart Rate [ Brachial] Respiratory 18 19 Rate Blood Pressure Blood Pressure [Right Brachial artery] O2 Saturation If not protocol 4 4 4 : Oxygen Flow, liters/minute 01/25/23 01/25/23 01/25/23 18:44 21:00 22:45 Temperature 36.9 C Heart Rate Heart Rate [ Brachial] Respiratory 18 Rate Blood Pressure Blood Pressure 137/52 H [Right Brachial artery] O2 Saturation 92 If not protocol 4 4 6 : Oxygen Flow, liters/minute 01/26/23 01/26/23 01/26/23 03:10 05:27 07:03 Temperature 36.2 C L 36.2 C L Heart Rate 94 Heart Rate [ 72 88 Brachial] Respiratory 18 20 22 Rate Blood Pressure Blood Pressure 126/55 L 131/59 H [Right Brachial artery] O2 Saturation 90 L 92 If not protocol 6 3 : Oxygen Flow, liters/minute 01/26/23 07:47 Temperature 36.2 C L Heart Rate Heart Rate [ 68 Brachial] Respiratory 18 Rate Blood Pressure Blood Pressure 148/72 H [Right Brachial artery] O2 Saturation 92 If not protocol 3 : Oxygen Flow, liters/minute Oxygen O2 Source Nasal cannula Oxygen Flow Rate 3 I&O (Last 24 Hrs): Intake and Output Totals x24h 01/24/23 01/25/23 01/26/23 23:59 23:59 23:59 Intake Total 920 50 Output Total 250 Balance 670 50 General: Alert, Oriented x3 HEENT: Mucous membr. moist/pink, Other (Missing several front lower teeth) Neck: Supple Neuro: Alert, Non Focal Cardiovascular: Regular rate Respiratory: Other (Good air movement, only scattered wheezes at the apices) Abdomen: Normal bowel sounds, Soft, Other (Obese) Extremities: No clubbing, No edema, No tenderness/swelling - Results Results: Laboratory Results WBC 9.8 x10^3/uL (4.8-10.8) 01/26/23 05:20 RBC 5.12 10^6/uL (4.70-6.10) 01/26/23 05:20 Hgb 14.4 g/dL (14.0-18.0) 01/26/23 05:20 Hct 43.2 % (42.0-52.0) 01/26/23 05:20 MCV 84.4 fL (80.0-94.0) 01/26/23 05:20 MCH 28.1 pg (27.0-31.0) 01/26/23 05:20 MCHC 33.3 g/dL (32.0-36.0) 01/26/23 05:20 RDW 13.6 % (12.0-15.0) 01/26/23 05:20 Plt Count 249 10^3/uL (130-450) 01/26/23 05:20 MPV 10.5 fL (7.4-11.4) 01/26/23 05:20 Neut # (Auto) 8.1 10^3/uL (1.5-6.6) H 01/26/23 05:20 Lymph # (Auto) 1.0 10^3/uL (1.5-3.5) L 01/26/23 05:20 [place] # (Auto) 0.5 10^3/uL (0.0-1.0) 01/26/23 05:20 Eos # (Auto) 0.0 10^3/uL (0.0-0.7) 01/26/23 05:20 Baso # (Auto) 0.0 10^3/uL (0.0-0.1) 01/26/23 05:20 Absolute Nucleated RBC 0.00 x10^3/uL 01/26/23 05:20 Nucleated RBC % 0.0 /100WBC 01/26/23 05:20 PT 16.1 secs (9.9-12.6) H 01/25/23 12:42 INR 1.5 (0.8-1.2) H 01/25/23 12:42 Sodium 132 mmol/L (135-145) L 01/26/23 05:20 Potassium 3.6 mmol/L (3.5-5.0) 01/26/23 05:20 Chloride 94 mmol/L (101-111) L 01/26/23 05:20 Carbon Dioxide 27 mmol/L (21-32) 01/26/23 05:20 Anion Gap 11.0 (6-13) 01/26/23 05:20 BUN 25 mg/dL (6-20) H 01/26/23 05:20 Creatinine 0.7 mg/dL (0.6-1.2) 01/26/23 05:20 Estimated GFR (MDRD) 112 (>89) 01/26/23 05:20 Glucose 218 mg/dL (70-100) H 01/26/23 05:20 Calcium 8.3 mg/dL (8.5-10.3) L 01/26/23 05:20 Magnesium 2.5 mg/dL (1.7-2.8) 01/26/23 05:20 Total Bilirubin 0.9 mg/dL (0.2-1.0) 01/25/23 12:42 AST 45 IU/L (10-42) H 01/25/23 12:42 ALT 59 IU/L (10-60) 01/25/23 12:42 Alkaline Phosphatase 59 IU/L (42-121) 01/25/23 12:42 Troponin I High Sens 28.0 ng/L (2.3-19.7) H* 01/25/23 15:35 B-Natriuretic Peptide 38 pg/mL (5-100) 01/25/23 12:42 Total Protein 7.9 g/dL (6.7-8.2) 01/25/23 12:42 Albumin 3.3 g/dL (3.2-5.5) 01/25/23 12:42 Globulin 4.6 g/dL (2.1-4.2) H 01/25/23 12:42 Albumin/Globulin Ratio 0.7 (1.0-2.2) L 01/25/23 12:42 Lipase 27 U/L (22-51) 01/25/23 12:42 Nasal Adenovirus (PCR) NOT DETECTED 01/25/23 12:27 Nasal B. parapertussis DNA (PCR) NOT DETECTED 01/25/23 12:27 Nasal Coronavir 229E PCR NOT DETECTED 01/25/23 12:27 Nasal Coronavir HKU1 PCR NOT DETECTED 01/25/23 12:27 Nasal Coronavir NL63 PCR NOT DETECTED 01/25/23 12:27 Nasal Coronavir OC43 PCR NOT DETECTED 01/25/23 12:27 Nasal Enterovir/Rhinovir PCR NOT DETECTED 01/25/23 12:27 Nasal Influenza B PCR NOT DETECTED 01/25/23 12:27 Nasal Influenza A PCR NOT DETECTED 01/25/23 12:27 Nasal Parainfluen 1 PCR NOT DETECTED 01/25/23 12:27 Nasal Parainfluen 2 PCR NOT DETECTED 01/25/23 12:27 Nasal Parainfluen 3 PCR NOT DETECTED 01/25/23 12:27 Nasal Parainfluen 4 PCR NOT DETECTED 01/25/23 12:27 Nasal RSV (PCR) NOT DETECTED 01/25/23 12:27 Nasal B.pertussis DNA PCR NOT DETECTED 01/25/23 12:27 Nasal C.pneumoniae (PCR) NOT DETECTED 01/25/23 12:27 [place]ilo Human Metapneumo PCR NOT DETECTED 01/25/23 12:27 Nasal M.pneumoniae (PCR) NOT DETECTED 01/25/23 12:27 Nasal SARS-CoV-2 (PCR) NOT DETECTED 01/25/23 12:27 - Procedures Procedures: Procedures CONTINUOUS INVASIVE MECHANICAL VENTILATION <96 CONSEC HRS (10/16/13) EXCISION OF NECK SKIN, EXTERNAL APPROACH (08/09/17) EXCISION OF RECTUM, ENDO (01/22/19) INSERT ENDOTRACHEAL TUBE (10/16/13) NON-INVASIVE MECHANICAL VENTILATION (10/16/13)
[2023-01-26] MEDS: SACCHAROMYCES BOULARDII 250 MG CAPSULE PO SCH ×2 (08:45→16:52)
[2023-01-26] MEDS: AZITHROMYCIN INJ 500 MG in SODIUM CHLORIDE 0.9% 250 ML IV SCH (11:03)
[2023-01-26 11:57] LABS: ESTIMATED AVERAGE GLUCOSE 146 mg/dL (70-100); HEMOGLOBIN A1c% 6.7 % (4.27-6.07)
[2023-01-26] MEDS: cefTRIAXone 1 GM in SODIUM CHLORIDE 0.9% MINIBAG 100 ML IV SCH (12:26)
[2023-01-27] MEDS: SODIUM CHLORIDE FLUSH 0.9% 10 ML SYRINGE IVP SCH ×2 (01:00→07:53)
[2023-01-27 05:38] LABS: BASOPHILS % (AUTO) 0.1 %; HCT - HEMATOCRIT 43.5 % (42.0-52.0); HGB - HEMOGLOBIN 14.3 g/dL (14.0-18.0); LYMPHOCYTES # (AUTO) 1.3 10^3/uL (1.5-3.5); LYMPHOCYTES % (AUTO) 11.3 %; MEAN CORPUSCULAR HEMOGLOBIN 28.1 pg (27.0-31.0); MEAN CORPUSCULAR HGB CONC 32.9 g/dL (32.0-36.0); MEAN CORPUSCULAR VOLUME 85.6 fL (80.0-94.0); MEAN PLATELET VOLUME 10.5 fL (7.4-11.4); MONOCYTES # (AUTO) 0.7 10^3/uL (0.0-1.0); MONOCYTES % (AUTO) 6.4 %; NEUTROPHILS # (AUTO) 9.4 10^3/uL (1.5-6.6); NEUTROPHILS % (AUTO) 81.3 %; PLT - PLATELET COUNT 316 10^3/uL (130-450); RED BLOOD COUNT 5.08 10^6/uL (4.70-6.10); RED CELL DISTRIBUTION WIDTH 13.7 % (12.0-15.0); WHITE BLOOD COUNT 11.6 x10^3/uL (4.8-10.8)
[2023-01-27 05:45] LABS: CALCIUM 8.5 mg/dL (8.5-10.3); CREATININE 0.7 mg/dL (0.6-1.2)
[2023-01-27] MEDS: methylPREDNISolone SUCCINATE 40 MG/ML VIAL IVP SCH (05:46)
[2023-01-27] MEDS: IPRATROPIUM/ALBUTEROL 3 ML NEB INH SCH ×3 (06:13→12:34)
[2023-01-27] MEDS: ASPIRIN CHEW 81 MG TABLET PO SCH (07:51)
[2023-01-27] MEDS: AZITHROMYCIN INJ 500 MG in SODIUM CHLORIDE 0.9% 250 ML IV SCH (07:51)
[2023-01-27] MEDS: METOPROLOL SUCCINATE 25 MG TABLET PO SCH (07:52)
[2023-01-27] MEDS: guaiFENesin 600 MG TABLET PO SCH (07:52)
[2023-01-27] MEDS: ENOXAPARIN 40 MG/0.4 ML SYRINGE SUBQ SCH (07:52)
[2023-01-27] MEDS: GLIMEPIRIDE 2 MG TABLET PO SCH (07:52)
[2023-01-27] MEDS: SACCHAROMYCES BOULARDII 250 MG CAPSULE PO SCH (07:52)
[2023-01-27] MEDS: cloNIDine 0.1 MG TABLET PO SCH (07:52)
[2023-01-27] MEDS: INSULIN LISPRO 300 UNIT/3 ML PEN SUBQ SCH ×2 (07:54→12:03)
[2023-01-27] MEDS: cefTRIAXone 1 GM in SODIUM CHLORIDE 0.9% MINIBAG 100 ML IV SCH (08:57)
[2023-01-27] MEDS ORDERED: NICOTINE 7 MG PATCH TOP SCH (09:00)
--- NOTE | 2023-01-27 11:44 | Discharge Plan ---
Discharge Plan Problem Reviewed?: Yes Disposition: Home, Self Care Condition: Stable Prescriptions: methylPREDNISolone [Medrol Dose Pack] 1 each PO .PACKAGEINSTRUCTIONS 6 Days #1 each Doxycycline [Vibramycin] 100 mg PO BID 4 Days #8 tablet Diet: Diabetic Activity Restrictions: Activity as Tolerated Instruction Topics: Tips Cardiovascular Quit Smoking, Withdrawal Smoking [place] [facility] Concerns: You are hospitalized because of very low oxygen levels, caused by pneumonia, on top of having underlying COPD and being a smoker. You received several days of IV antibiotics. You received IV steroids and nebulized bronchodilators. You have improved unexpectedly quickly. You are being discharged home today with a prescription ordered for several more days of oral antibiotics and a Medrol Dosepak prescription, to taper down the steroids that helped your lungs. The new prescriptions were electronically sent to your pharmacy (at the [facility], on the [address]). Please resume all your other usual pre-Hospital medications. You were tested to see if you need a new home oxygen order and you do. The oxygen should be set at 4 L/min and used when you do any activity. You should see your primary care provider in the next 1 to 2 weeks for hospital follow-up visit. Having a COPD diagnosis, you qualify for attending pulmonary rehab here [facility] ([facility] called the [facility]), as an outpatient; this would need to be ordered by your PCP. Plan of Treatment: As above. Care Goals: Improvement in symptoms and stabilization of the goals. Stopping smoking is also a goal. Assessment: The patient understands and is agreeable with the plan. Additional Instructions or Follow Up instructions: If you have new or worsening symptoms, call your PCP for advice or come to the ER. No Smoking: If you smoke, Please STOP! Call for help. Follow-up with: Simone Rider MD [Primary Care Provider] -
--- NOTE | 2023-01-27 11:51 | Discharge Plan ---
Discharge Plan Problem Reviewed?: Yes Disposition: Home, Self Care Condition: Stable Prescriptions: methylPREDNISolone [Medrol Dose Pack] 1 each PO .PACKAGEINSTRUCTIONS 6 Days #1 each Doxycycline [Vibramycin] 100 mg PO BID 4 Days #8 tablet Activity Restrictions: Activity as Tolerated Instruction Topics: Tips Cardiovascular Quit Smoking, Withdrawal Smoking [facility] Concerns: You are hospitalized because of very low oxygen levels, caused by pneumonia, on top of having underlying COPD and being a smoker. You received several days of IV antibiotics. You received IV steroids and nebulized bronchodilators. You have improved unexpectedly quickly. You are being discharged home today with a prescription ordered for several more days of oral antibiotics and a Medrol Dosepak prescription, to taper down the steroids that helped your lungs. The new prescriptions were electronically sent to your pharmacy (at the [facility], on the [address]). Please resume all your other usual pre-Hospital medications. You were tested to see if you need a new home oxygen order and you do. The oxygen should be set at 4 L/min and used when you do any activity. You should see your primary care provider in the next 1 to 2 weeks for hospital follow-up visit. Having a COPD diagnosis, you qualify for attending pulmonary rehab here in [facility] (formerly called the [facility]), as an outpatient; this would need to be ordered by your PCP. Plan of Treatment: As above. Care Goals: Improvement in symptoms and stabilization of the goals. Stopping smoking is also a goal. Assessment: The patient understands and is agreeable with the plan. Additional Instructions or Follow Up instructions: If you have new or worsening symptoms, call your PCP for advice or come to the ER. Follow-Up Care: [facility] - Pulmonary No Smoking: If you smoke, Please STOP! Call for help. Follow-up with: Simone Rider MD [Primary Care Provider] -
[2023-01-27 12:18] VITALS: BP 146/68
--- NOTE | 2023-01-27 12:22 | DISCHARGE SUMMARY ---
Discharge Summary Admit Date: 01/25/23 Discharge Date: 01/27/23 Discharging Provider: Dr Salgado Primary Care Provider: Dr Rider Condition at Discharge: Stable Discharge Disposition: 01 Home, Self Care - HPI History of Present Illness: This is a 67-year-old male with a history of obesity, smoker, type II Diabetic on oral agents, and sleep apnea on CPAP. He describes catching a virus from the grandchildrren which caused several weeks of diarrhea, which then resol kacy but he had nasal congestion and cough symptoms for about [address] himself to his PCP today. At their office he had an O2 saturation of 82% on room air and an ambulance was called. En route to the hospital the paramedics gave him Solu-Medrol 125 mg IV and a DuoNeb treatment and put him on oxygen at 4 L. In the ER, he was tachypneic with resp rate 30, and documented to have an O2 saturation of 86% on room air and has needed 3 or 4 L of suppl O2 per nasal cannula to achieve O2 sat of 90%. He was not moving air on initial ED provider exam and got a nebulizer treatment, then was wheezing and was given nebulizer treatment again. His chest x-ray showed possible CHF so he also got Lasix 40 mg IV. The final chest x-ray result was read as having probable bilateral pneumonia. His respiratory PCR panel is negative including COVID-negative. His COVID vaccinations are up to date. Blood cultures were obtained and he received IV Ceftriaxone and Zithromax in the ER. The ED provider contacted me and we spoke about this patient. He will be admitted to manage acute respiratory failure with hypoxia with a COPD exacerbation and community-acquired pneumonia. The patient and I discussed his CODE BLUE wishes and he wants to be a Full Code. - HOSPITAL COURSE Hospital Course: (1) Acute respiratory failure with hypoxia This was caused by his COPD exacerbation plus a pneumonia. With his low oxygen saturations, he needed supplemental O2 at 4-6L/min. CHF was ruled out: The chest x-ray did report probable volume overload and he did receive Lasix IV x1 in the ER. Subsequently BNP came back normal at 38. Also, troponins were checked x2 and were essentially normal. His supplemental O2 was tapered down. We treated his C OPD and the pneumonia. On the day of discharge he underwent an oximetry walk test. Patient was not hypoxic at rest on room air with O2 sat of 92%. However, with exertion on room air, his O2 sat was 87%. On 4L/min O2 via n.c., his sat improved to 91%. I am ordering home O2, room air at rest, but set at 4 L/min with exertion, to treat his COPD with hypoxia and resulting hypoxemia. (2) COPD with exacerbation This was likely caused by his pneumonia and continued smoking. He was treated with nebulized bronchodilators, IV Solu-Medrol, new nightime Montelukast, and Mucinex for pulmonary toilet. We continued supplemental O2, with target saturations of 88% and above, in a COPDer. He was tapered down to room air unexpectedly quickly, to be able to be discharged. At discharge, he was prescribed a Medrol Dose-Cayetano. He said he had adequate inhalers at home for use. (3) CAP (community acquired pneumonia) He was started on empiric IV ceftriaxone and IV Zithromax. Patient was able to produce a sputum sample and Gram stain showed white cells and gram-positive cocci. He was discharged before final sputum culture results were back, to take several more days of Doxycycline. But the spt culture only grew normal respiratory fora. Blood cultures were neg. (4) Tobacco abuse The patient admitted to smoking 1 and 1/2 PPD, until this URI 2 weeks ago, which made him so SOB, that he smoked only 3 cigarettes/day. He was on Nicotine patch while here. He felt he could now taper smoking to off after discharge. (5) DM type 2 (diabetes mellitus, type 2) On Solumedrol, his fingerstick glu was the 200's. His A1c came back at 6.7 indicating good glu control. We continued his Glimepiride and had him on a di abetic diet, sliding scale insulin coverage and hypoglycemia protocol. Metformin was also resumed for him at discharge. (6) Obesity (BMI 35.0-39.9 without comorbidity) This may be the cause of any sleep apnea, and the obesity makes his overall care difficult - ALLERGIES Allergies/Adverse Reactions: Allergies Allergy/AdvReac Type Severity Reaction Status Date / Time Penicillins Allergy Unknown Unknown Verified 01/25/23 12:28 - MEDICATIONS Home Medications: Ambulatory Orders Medication Instructions Recorded Confirmed Metoprolol Succinate [Toprol Xl] 25 mg PO BID 08/05/17 01/25/23 cloNIDine [Catapres] 0.1 mg PO BID 08/05/17 01/25/23 Albuterol Sulfate [Proair Hfa 1 - 2 puffs INH Q4H PRN 12/01/18 01/25/23 Inhaler] Aspirin 81 mg PO DAILY 12/01/18 01/25/23 Docusate Sodium 250Mg Capsule 250 mg PO BID PRN 12/01/18 01/25/23 [Colace 250Mg Capsule] Glimepiride [Amaryl] 1 tab PO DAILY 08/12/22 01/25/23 Acetaminophen [Tylenol] 1 - 2 tab PO TID PRN 01/25/23 01/25/23 Ibuprofen 1 - 3 tab PO TID PRN 01/25/23 01/25/23 Metformin HCl 1 tab PO BID 01/25/23 01/25/23 Doxycycline [Vibramycin] 100 mg PO BID 4 Days #8 tablet 01/27/23 methylPREDNISolone [Medrol Dose 1 each PO .PACKAGEINSTRUCTIONS 6 01/27/23 Pack] Days #1 each - PHYSICAL EXAM AT DISCHARGE General Appearance: positive: No acute distress, Alert, Other (Obese male, dasha complexion.) Eyes Bilateral: positive: Normal inspection, EOMI ENT: positive: No signs of dehydration, Other (Poor dentition) Neck: positive: Nml inspection, No JVD Respiratory: positive: No respiratory distress, Breath sounds nml Cardiovascular: positive: Regular rate & rhythm, No murmur Abdomen: positive: Non-tender, Other (Obese) Skin: positive: Warm, Dry Extremities: positive: Non-tender, No pedal edema Neurologic/Psychiatric: positive: Oriented x3, Motor nml - LABS Result Diagrams: 01/27/23 05:31 01/27/23 05:31 - DIAGNOSTIC IMAGING Diagnostic Imaging Results: Final report reviewed - FOLLOW UP Follow Up: See PCP in 1-2 weeks for a hospital follow-up visit. - TIME SPENT Time Spent in Discharge (Minutes): 45
== END 2023-01-27 13:04 | disposition home or self-care (01) | DRG 189 ==
LOC: ED 12:18 → MS2 13:58
PROVIDERS: ADMIT Internal Medicine; ATTEND Internal Medicine
DX: J96.01 Acute respiratory failure with hypoxia (principal); J18.9 Pneumonia, unspecified organism; J44.0 Chronic obstructive pulmonary disease with (acute) lower respiratory infection; J44.1 Chronic obstructive pulmonary disease with (acute) exacerbation; E87.1 Hypo-osmolality and hyponatremia; Z20.822 Contact with and (suspected) exposure to COVID-19; F17.210 Nicotine dependence, cigarettes, uncomplicated; E11.9 Type 2 diabetes mellitus without complications; E66.9 Obesity, unspecified; R00.0 Tachycardia, unspecified; I45.10 Unspecified right bundle-branch block; G47.30 Sleep apnea, unspecified; M06.9 Rheumatoid arthritis, unspecified; I50.9 Heart failure, unspecified; Z68.35 Body mass index [BMI] 35.0-35.9, adult; Z79.84 Long term (current) use of oral hypoglycemic drugs
CPT/HCPCS: 36415; 71045; 80048; 80053; 83036; 83690; 83735; 83880; 84484; 85025; 85610; 87040; 87070; 87205; 87633; 93005; 94640; 94761; 96374; 99284; 99285; A9270; J1650

== ENCOUNTER 2023-05-23 07:08 | Outpatient (CLI) | payer MEDICARE, OTHER ==
[2023-05-23 07:40] LABS: ALBUMIN 4.3 g/dL (3.2-5.5); ALBUMIN/GLOBULIN RATIO 1.3 (1.0-2.2); ALKALINE PHOSPHATASE 67 IU/L (42-121); ALT ALANINE AMINOTRANSFERASE 25 IU/L (10-60); AST ASPARTATE AMINOTRANSFERASE 15 IU/L (10-42); BILIRUBIN,TOTAL 0.4 mg/dL (0.2-1.0); BUN - BLOOD UREA NITROGEN 18 mg/dL (6-20); CALCIUM 9.8 mg/dL (8.5-10.3); CARBON DIOXIDE - CO2 31 mmol/L (21-32); CHLORIDE 102 mmol/L (101-111); CHOL/HDL RATIO 4.6 (<5.0); CHOLESTEROL 183 mg/dL; CREATININE 0.8 mg/dL (0.6-1.3); GFR - MDRD 96 (>89); GLUCOSE 141 mg/dL (74-104); HDL CHOLESTEROL 40 mg/dL; LDL CHOLESTEROL,CALCULATED 111 mg/dL; LDL/HDL RATIO 2.8 (<3.6); POTASSIUM 4.1 mmol/L (3.5-4.5); SODIUM 137 mmol/L (135-145); TOTAL PROTEIN 7.5 g/dL (6.4-8.9); TRIGLYCERIDES 162 mg/dL (48-352); VLDL CHOLESTEROL 32 mg/dL
[2023-05-23 07:48] LABS: BASOPHILS # (AUTO) 0.1 10^3/uL (0.0-0.1); EOSINOPHILS # (AUTO) 0.2 10^3/uL (0.0-0.7); EOSINOPHILS % (AUTO) 2.1 %; HCT - HEMATOCRIT 49.9 % (42.0-52.0); HGB - HEMOGLOBIN 16.2 g/dL (14.0-18.0); LYMPHOCYTES # (AUTO) 3.5 10^3/uL (1.5-3.5); LYMPHOCYTES % (AUTO) 34.5 %; MEAN CORPUSCULAR HEMOGLOBIN 29.3 pg (27.0-31.0); MEAN CORPUSCULAR HGB CONC 32.5 g/dL (32.0-36.0); MEAN CORPUSCULAR VOLUME 90.4 fL (80.0-94.0); MEAN PLATELET VOLUME 10.1 fL (7.4-11.4); MONOCYTES # (AUTO) 0.8 10^3/uL (0.0-1.0); MONOCYTES % (AUTO) 7.7 %; NEUTROPHILS # (AUTO) 5.5 10^3/uL (1.5-6.6); NEUTROPHILS % (AUTO) 54.2 %; PLT - PLATELET COUNT 234 10^3/uL (130-450); RED BLOOD COUNT 5.52 10^6/uL (4.70-6.10)
[2023-05-23 07:53] LABS: THYROID STIMULATING HORMONE 1.87 uIU/mL (0.34-5.60)
[2023-05-23 10:36] LABS: ESTIMATED AVERAGE GLUCOSE 143 mg/dL (70-100); HEMOGLOBIN A1c% 6.6 % (4.27-6.07)
--- NOTE | 2023-05-23 11:09 | XRAY Report ---
PROCEDURE: Chest 2 View X-Ray INDICATIONS: ACUTE CRONIC RESPIRATORY FAILURE TECHNIQUE: 2 views of the chest were acquired. COMPARISON: Chest x-ray, 01/25/2023. FINDINGS: Surgical changes and devices: None. Lungs and pleura: No pleural effusions or pneumothorax. Mild pulmonary interstitial prominence. No focal consolidation. Mediastinum: Mediastinal contours appear normal. Heart size is normal. Bones and chest wall: No suspicious bony lesions. Overlying soft tissues appear unremarkable. IMPRESSION: No acute cardiopulmonary process. Reviewed by: Taye Son MD on 05/23/2023 11:08 AM PDT Approved by: Taye Son MD on 05/23/2023 11:08 AM PDT Station ID: [id number]
== END 2023-05-23 07:09 | disposition home or self-care (01) ==
LOC: DI 07:08
PROVIDERS: ATTEND Family Medicine
DX: J96.20 Acute and chronic respiratory failure, unspecified whether with hypoxia or hypercapnia (principal); E11.9 Type 2 diabetes mellitus without complications; I10 Essential (primary) hypertension; E66.01 Morbid (severe) obesity due to excess calories; J44.9 Chronic obstructive pulmonary disease, unspecified
CPT/HCPCS: 36415; 80053; 80061; 83036; 83721; 84443; 85025

== ENCOUNTER 2023-08-12 09:25 | Outpatient (CLI) | payer MEDICARE, OTHER ==
--- NOTE | 2023-08-12 09:42 | Sleep Patient Instructions ---
Sleep Center Visit Summary - Patient Visit Information Reason for Visit: Annual Visit - Patient Instructions Additional Instructions: You will continue with BIPAP therapy with pressure set at 20/14 cmH2O. A supply prescription will be updated with your DME. We encourage you to continue to try to lose weight. Please follow up with the sleep care office in 1 year. - Clinic Information Contact: [facility] [address] [place] [address] [email or web address] T: [phone]
--- NOTE | 2023-08-12 09:46 | SLEEP CARE CONSULTATION ---
Information from patient questionnaire entered by Sammy Kessler. I have reviewed and concur with the information entered by Sammy Kessler. This document represents the service I personally performed and the decisions made by me, Mallory Broderick ARNP. History of Present Illness Service Date and Time: 08/12/2023 09 Previous diagnosis: Very Severe, Obstructive Sleep Apnea-Hypopnea Syndrome AHI: 60.5 (in 2013) Reason for follow up: annual (LAST SEEN 08/2022) Equipment type: BiPAP ([employer] BiPAP; s/u 05/2020) Equipment obtained from: [employer] (getting supplies as needed) Mask style: Nasal pillows Backup mask available: Yes Last cushion change: 1 month Prior sleep studies: Yes Year and Where: 2013 - [facility] Type of Sleep Study: Polysomnography HPI additional information: KEYONNA GUERRERO was diagnosed to have very severe, AHI 60.5, obstructive sleep apnea-hypopnea syndrome and returned today for BIPAP therapy annual follow-up. Sleep Study - Results Type of Sleep Study: Polysomnography Prior sleep studies: Yes Year and Where: 2013 - [facility] CPAP Compliance Data - Data Reviewed with Patient Average duration of nightly device use: 9 HR 48 MIN 35 SECS Compliance rate %: 100 (02/11/23-; 180/180 days used) Current pressure setting (cmH2O): 20/14 Average residual AHI: 0.8 Central apnea: 0.1 Obstructive apnea: 0.2 Hypopnea: 0.5 Average large leak: 1 hour 44 minutes On Oxygen: Yes (4 L NC during the day) Oxygen usage: Intermittent Subjective Patient concerns: denies: aerophagia, mask discomfort, air blowing in eyes, mask leak noise, condensation in mask/hose, nasal congestion, dry mouth, nose, throat, epistaxis Observed to snore while using device: No Current pressure setting perceived as: comfortable On therapy, patient: reports: sleeping better, awakening more refreshed, being more awake and alert during the day, more rested overall. denies: drowsiness while driving Initial Lares Sleepiness Scale score: 11 (in 2013) Current Lares Sleepiness Scale score: 9 (08/12/23) Allergies and Home Medications Known drug allergies: Yes (as listed) Drug allergies reviewed: Yes Home medication list reviewed: Yes (no changes) Allergy and home medication list: Allergies Penicillins Allergy (Unknown, Verified 08/11/23 12:26) Unknown Home Medications Medication Instructions Recorded Confirmed Last Taken Type Metoprolol Succinate [Toprol Xl] 25 mg PO BID 08/05/17 08/12/23 01/22/19 History cloNIDine [Catapres] 0.1 mg PO BID 08/05/17 08/12/23 01/22/19 History Albuterol Sulfate [Proair Hfa 1 - 2 puffs INH Q4H PRN 12/01/18 08/12/23 01/22/19 History Inhaler] Aspirin 81 mg PO DAILY 12/01/18 08/12/23 01/17/19 History Docusate Sodium 250Mg Capsule 250 mg PO BID PRN 12/01/18 08/12/23 Unknown History [Colace 250Mg Capsule] Glimepiride [Amaryl] 1 tab PO DAILY 08/12/22 08/12/23 Unknown History Acetaminophen [Tylenol] 1 - 2 tab PO TID PRN 01/25/23 08/12/23 Unknown History Ibuprofen 1 - 3 tab PO TID PRN 01/25/23 08/12/23 Unknown History Metformin HCl 1 tab PO BID 01/25/23 08/12/23 Unknown History Doxycycline [Vibramycin] 100 mg PO BID 4 Days #8 tablet 01/27/23 08/12/23 Unknown Rx methylPREDNISolone [Medrol Dose 1 each PO .PACKAGEINSTRUCTIONS 6 01/27/23 08/12/23 Unknown Rx Pack] Days #1 each Review of Systems Review of systems same as previous: Yes (NO CHANGE) Physical Exam Vital signs obtained and entered by: SAMMY Ellis MA Blood Pressure: 142/90 (LEFT ARM) Cuff size: long Heart Rate: 93 O2 Saturation: 93 Height: 6 ft Weight: 293 lb 3.2 oz Weight change since last visit: 9 lb gain Body Mass Index: 39.7 BMI Classification: Obese Impression and Plan 1. Obstructive Sleep Apnea-Hypopnea Syndrome, very severe, with good treatment compliance and good apnea control. On BiPAP therapy, the patient has better sleep quality and is more rested overall. He tells me that he does use oxygen intermittently through the day at 4 L NC, but does not use his oxygen through BiPAP at night. He would like to get a portable oxygen machine so he can travel more. Patient has significant improvement of their sleep apnea and is satisfied with current CPAP therapy. Patient denies problems with oral dryness, nasal congestion, epistaxis, skin irritation or aerophagia. Patient's apnea severity and rationale for treatment to reduce apnea, improve sleep quality and reduce cardiovascular and cerebrovascular events was reviewed. I also reviewed the benefit of consistent device use of BIPAP for hypertension. 2. Obesity, unspecified. Currently patients BMI is 39.7. He has gained weight but is trying to lose weight. Obesity increases the risk of apnea, BIPAP pressure requirements and overall health risks especially cardiovascular and diabetes. Thus patient is advised to continue to try to lose weight. * Continue BIPAP pressure at 20/14 cmH2O * Update supply prescription * Notify me if snoring with mask or feeling that the pressure is too much or too little * Attempt to lose weight * Call this office if any problems using BIPAP * Return for follow up in 1 year, or sooner if concerns arise Counseling Topics: Spare mask, Weight loss health impact Prescriptions: Device supplies Follow up with Sleep Care in: 1 year Visit Type: In Office Time Spent with Patient (minutes): 13 Provider Statement: I spent 100% of the Face to Face Visit with the patient with greater than 50% spent counseling the patient and coordination of care.
[2023-08-12 09:54] VITALS: BP 142/90; O2SAT 93
== END 2023-08-12 09:26 | disposition home or self-care (01) ==
LOC: SC 09:25
PROVIDERS: ATTEND Nurse Practitioner Family
DX: G47.33 Obstructive sleep apnea (adult) (pediatric) (principal); E66.9 Obesity, unspecified; Z68.39 Body mass index [BMI] 39.0-39.9, adult
CPT/HCPCS: 99212; G0463

== ENCOUNTER 2023-09-07 10:49 | Outpatient (CLI) | payer MEDICARE, OTHER ==
[2023-09-07 11:26] LABS: CALCIUM 10.1 mg/dL (8.5-10.3); CREATININE 0.8 mg/dL (0.6-1.3); POTASSIUM 4.2 mmol/L (3.5-4.5)
[2023-09-07 12:16] LABS: ESTIMATED AVERAGE GLUCOSE 171 mg/dL (70-100); HEMOGLOBIN A1c% 7.6 % (4.27-6.07)
== END 2023-09-07 10:50 | disposition home or self-care (01) ==
LOC: LAB 10:49
PROVIDERS: ATTEND Family Medicine
DX: E11.9 Type 2 diabetes mellitus without complications (principal)
CPT/HCPCS: 36415; 80048; 83036

== ENCOUNTER 2023-12-07 07:18 | Outpatient (CLI) | payer MEDICARE, OTHER ==
[2023-12-07 07:34] LABS: BASOPHILS # (AUTO) 0.1 10^3/uL (0.0-0.1); BASOPHILS % (AUTO) 0.9 %; EOSINOPHILS # (AUTO) 0.3 10^3/uL (0.0-0.7); EOSINOPHILS % (AUTO) 2.9 %; HCT - HEMATOCRIT 49.2 % (42.0-52.0); HGB - HEMOGLOBIN 15.7 g/dL (14.0-18.0); LYMPHOCYTES # (AUTO) 2.9 10^3/uL (1.5-3.5); LYMPHOCYTES % (AUTO) 32.8 %; MEAN CORPUSCULAR HEMOGLOBIN 28.8 pg (27.0-31.0); MEAN CORPUSCULAR HGB CONC 31.9 g/dL (32.0-36.0); MEAN CORPUSCULAR VOLUME 90.1 fL (80.0-94.0); MEAN PLATELET VOLUME 9.9 fL (7.4-11.4); MONOCYTES # (AUTO) 0.7 10^3/uL (0.0-1.0); MONOCYTES % (AUTO) 8.4 %; NEUTROPHILS # (AUTO) 4.7 10^3/uL (1.5-6.6); NEUTROPHILS % (AUTO) 54.3 %; PLT - PLATELET COUNT 234 10^3/uL (130-450); RED BLOOD COUNT 5.46 10^6/uL (4.70-6.10); RED CELL DISTRIBUTION WIDTH 13.3 % (12.0-15.0); WHITE BLOOD COUNT 8.7 x10^3/uL (4.8-10.8)
[2023-12-07 07:53] LABS: ALBUMIN 4.4 g/dL (3.2-5.5); ALBUMIN/GLOBULIN RATIO 1.4 (1.0-2.2); ALKALINE PHOSPHATASE 75 IU/L (42-121); ALT ALANINE AMINOTRANSFERASE 28 IU/L (10-60); AST ASPARTATE AMINOTRANSFERASE 15 IU/L (10-42); BILIRUBIN,TOTAL 0.4 mg/dL (0.2-1.0); BUN - BLOOD UREA NITROGEN 13 mg/dL (6-20); CARBON DIOXIDE - CO2 31 mmol/L (21-32); CHLORIDE 101 mmol/L (101-111); CHOL/HDL RATIO 4.3 (<5.0); CHOLESTEROL 167 mg/dL; CREATININE 0.8 mg/dL (0.6-1.3); GFR - MDRD 96 (>89); GLUCOSE 149 mg/dL (74-104); HDL CHOLESTEROL 39 mg/dL; LDL CHOLESTEROL,CALCULATED 100 mg/dL; LDL/HDL RATIO 2.6 (<3.6); POTASSIUM 4.1 mmol/L (3.5-4.5); SODIUM 137 mmol/L (135-145); TOTAL PROTEIN 7.6 g/dL (6.4-8.9); TRIGLYCERIDES 138 mg/dL (48-352); VLDL CHOLESTEROL 28 mg/dL
[2023-12-07 08:17] LABS: THYROID STIMULATING HORMONE 1.26 uIU/mL (0.34-5.60)
[2023-12-07 08:57] LABS: CREATININE,URINE 154.8 mg/dL; MICROALBUM/CREATININE RATIO,UR 18.7 ug/mg (<30.0); MICROALBUMIN,URINE 2.9 mg/dL
[2023-12-07 10:20] LABS: ESTIMATED AVERAGE GLUCOSE 154 mg/dL (70-100)
== END 2023-12-07 07:19 | disposition home or self-care (01) ==
LOC: LAB 07:18
PROVIDERS: ATTEND Family Medicine
DX: J96.10 Chronic respiratory failure, unspecified whether with hypoxia or hypercapnia (principal); I25.10 Atherosclerotic heart disease of native coronary artery without angina pectoris; E11.9 Type 2 diabetes mellitus without complications; E66.9 Obesity, unspecified; I10 Essential (primary) hypertension; J44.9 Chronic obstructive pulmonary disease, unspecified
CPT/HCPCS: 36415; 80053; 80061; 82043; 82570; 83036; 83721; 84443; 85025

== ENCOUNTER 2024-05-07 12:19 | Outpatient (CLI) | payer MEDICARE, OTHER ==
[2024-05-07 12:50] LABS: MICROALBUM/CREATININE RATIO,UR 30.2 ug/mg (<30.0); MICROALBUMIN,URINE 5.4 mg/dL
[2024-05-07 13:00] LABS: CALCIUM 10.2 mg/dL (8.5-10.3); CREATININE 0.9 mg/dL (0.6-1.3); POTASSIUM 4.1 mmol/L (3.5-4.5)
[2024-05-07 14:16] LABS: ESTIMATED AVERAGE GLUCOSE 146 mg/dL (70-100); HEMOGLOBIN A1c% 6.7 % (4.27-6.07)
== END 2024-05-07 12:20 | disposition home or self-care (01) ==
LOC: LAB 12:19
PROVIDERS: ATTEND Family Medicine
DX: I10 Essential (primary) hypertension (principal); J44.9 Chronic obstructive pulmonary disease, unspecified; J96.20 Acute and chronic respiratory failure, unspecified whether with hypoxia or hypercapnia; E66.9 Obesity, unspecified; E11.9 Type 2 diabetes mellitus without complications
CPT/HCPCS: 36415; 80048; 82043; 82570; 83036